=== PATIENT | female | born 1975 | race Caucasian/White ===

== ENCOUNTER 2020-10-30 14:54 | Emergency (ER) | payer MEDICAID, SELFPAY ==
--- NOTE | ~2020-10-30 | CT_ITS ---
EXAMINATION: CT ABDOMEN AND PELVIS WITHOUT CONTRAST CLINICAL INFORMATION: Flank pain. Lumbar back pain with urinary retention. COMPARISON: None TECHNIQUE: Multidetector volumetric imaging was performed from the superior aspect of the liver through the pubic symphysis. Sagittal and coronal reformatted images were obtained on the technologist's workstation. This CT examination was performed using dose optimization techniques as appropriate, variously including the following: *Automated exposure control *Adjustment of mA and/or kV according to patient size (this includes techniques or standardized protocols for targeted exams where dose is matched to indication/reason for exam; i.e. extremities or head) *Use of iterative reconstruction technique DLP: 732 mGy-cm FINDINGS: LUNG BASES: The visualized lung bases are unremarkable. LIVER, GALLBLADDER, AND BILIARY TREE: The liver is normal in size, shape, and attenuation. No focal hepatic lesion or biliary ductal dilatation is present. The gallbladder is unremarkable with no evidence of radiopaque gallstones, gallbladder wall thickening, or obvious pericholecystic inflammatory changes. PANCREAS: Unremarkable. SPLEEN: Unremarkable. ADRENAL GLANDS: Unremarkable. KIDNEYS AND URETERS: The kidneys are normal in size, shape, and attenuation. No hydronephrosis, hydroureter, or calculi seen. No perinephric stranding. BLADDER: Underdistended-appearing, unremarkable. GASTROINTESTINAL TRACT: Stomach is partially distended. No dilated small bowel loops. The large colon is nondistended. No colonic wall thickening or pericolonic inflammatory changes. The appendix is not definitely identified. No inflammatory changes are seen in the right lower quadrant. No free fluid. No free air. ABDOMINAL WALL: No significant hernia is appreciated. LYMPH NODES: No enlarged lymph nodes are seen. VASCULAR: Normal caliber aorta. PELVIC VISCERA: Uterus is retroverted. No adnexal masses appreciated. OSSEOUS STRUCTURES: No acute or suspicious osseous abnormality. CT/CT abdomen pelvis wo con IMPRESSION: 1. No acute infectious/inflammatory process is identified in the abdomen or pelvis. 2. No renal calculi or hydronephrosis is seen.
[2020-10-30 15:54] VITALS: BP 168/92; PULSE 60; RESP 20; TEMP 36.4; O2SAT 96; BMI 34.9
[2020-10-30 16:00] VITALS: BP 142/86; PULSE 96; RESP 16; O2SAT 100
--- NOTE | 2020-10-30 17:16 | ED_ITS ---
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 She states that she took Vicodin and other pain medications earlier today however the medications that have been prescribed to her are ineffective. She does have chronic back pain with bilateral sciatica. She does not report any fevers or chills, chest pain or pressure, palpitations, shortness of breath, abdominal distention, hematuria, melena, hematochezia, nausea, vomiting, diarrhe a, constipation, and edema. She denies any symptoms indicating cauda equina and has not traveled outside of the country. MD elicited complaint: flank pain and other ( Back pain) Onset (ago): day(s) Pain Consistency: constant Location: L flank and R flank Severity: severe Quality: stabbing and aching Migration to: no migration Exacerbating factors: movement Relieving factors: nothing Associated symptoms: other ( dysuria) Treatments prior to arrival: prescription analgesics Related Data Patient : No Previous Rx's Medication Instructions Recorded diazepam [Valium] 5 mg PO TID PRN #7 tab 10/30/20 Allergies Allergy/AdvReac Type Severity Reaction Status Date / Time No Known Allergies Allergy Unverified 01/13/20 17:24 [No Known Allergies*] Review of Systems Review of Systems Constitutional: No Fever, No Chills ENT/Mouth: No sore throat Eyes: No Eye Pain, No Swelling, No Redness Cardiovascular: No Chest Pain, No SOB Respiratory: No Cough, No Sputum, No Wheezing Gastrointestinal: positive Nausea, no Vomiting, No Diarrhea, positive abdominal pain Genitourinary: positive Dysuria, positive urinary frequency, no Hematuria, positive Flank Pain, positive hesitancy Musculoskeletal: No joint pain, No Myalgias Skin: No Skin Lesions, No rash Neuro: No Weakness, No Numbness, No Headache Psych: No Anxiety/Panic, No Depression Heme/Lymph: No Bruising, No Lymphadenopathy Endocrine: No Polyuria, No Polydipsia Yes all other systems are reviewed and are negative Physical Exam Vital Signs: Vital Signs: Last Vital Signs Temp 97.5 F 10/30/20 15:54 Pulse 74 10/30/20 18:00 Resp 16 10/30/20 18:00 BP 132/66 10/30/20 18:00 Pulse Ox 99 10/30/20 18:00 Body Mass Index 34.9 Appearance: Alert. Oriented X3. No acute distress. Eyes: Pupils equal, round and reactive to light. ENT: Pharynx normal. Neck: Normal inspection. Neck supple. CVS: Normal heart rate and rhythm. Pulses normal. Respiratory: No respiratory distress. Breath sounds normal. Abdomen: Soft and tender to right lower left lower quadrants, positive CVA tenderness. Skin: Skin warm and dry. Normal skin color. Normal skin turgor. Extremities: No lower extremity edema. Neuro: No motor deficit. No sensory deficit. Course Course Course Narrative: 45-year-old female presents with 2 days of back pain, bilateral flank pain, urinary hesitancy and frequency, states that she does have bilateral side numbness which is chronic. She has not lost balance, and denies symptoms indicating cauda equina. Will order CT scan of abdomen pelvis to rule out acute abdomen, stones, with a focus on lumbar spine secondary to her past medical history of herniation And disc generation. CT scan was negative. Labs are unremarkable. Urinalysis is unremarkable. Patient is requesting more pain medication however at this time I do not feel that is necessary. She does have prescriptions at home for Vicodin, which I will advise her to continue to use. Patient verbalized understanding of and agrees to plan of care discharge home. management liaison utilized for all correspondence. Google translate utilized for discharge instructions. MDM - Abdominal Pain Differential Diagnosis Differential diagnosis: Likely abdominal pain and calculus of kidney Medical Records Attestation: I reviewed the patient's medical records. Lab Data Attestation: I reviewed the patient's lab results. Result diagrams: 10/30/20 17:21 10/30/20 17:21 Labs: Lab Results 10/30/20 10/30/20 10/30/20 Range/Units 17:20 17:20 17:21 WBC 7.9 (4.8-10.8) X10*3/uL RBC 4.96 (4.20-5.50) X10*6/uL Hgb 14.3 (12.0-16.0) g/dl Hct 42.9 (37-47) % MCV 86.5 (80-98) fL MCH 28.8 (27.0-33.0) pg MCHC 33.3 (31.0-35.0) g/dl RDW 13.0 (11.0-16.0) % Plt Count 283 (160-400) X10*3/uL MPV 9.9 (9.4-12.3) fL Immature Gran % (Auto) 0.8 H (0.0-0.4) % Neut % (Auto) 70.2 (45-73) % Lymph % (Auto) 19.3 L (20-40) % Vermilion % (Auto) 7.1 (2-11) % Eos % (Auto) 2.0 (0-4) % Baso % (Auto) 0.6 (0-2) % Lymph # (Auto) 1.5 (1.2-4.9) X10*3/uL [place] # (Auto) 0.6 (0.1-1.2) X10*3/uL Eos # (Auto) 0.2 (0.0-0.4) X10*3/uL Baso # (Auto) 0.1 (0.0-0.2) X10*3/uL Abs Immat Gran (auto) 0.06 H (0.00-0.03) X10*3/uL Absolute Neuts (auto) 5.5 (2.0-8.3) X10*3/uL Absolute Nucleated RBC 0.000 (0.0-0.012) X10*3/uL Nucleated RBC % (auto) 0.0 (0.0-0.2) /100WBC Sodium (135-145) mmol/L Potassium (3.3-5.1) mmol/L Chloride (96-108) mmol/L Carbon Dioxide (22-29) mmol/L Anion Gap (12-20) BUN (9-16) mg/dL Creatinine (0.5-1.4) mg/dL Estim Creat Clear Calc Estimated GFR Random Glucose (60-115) mg/dL Calcium (8.4-10.2) mg/dL Total Bilirubin (0.0-1.0) mg/dL Direct Bilirubin (0.0-0.5) mg/dL AST (5-31) U/L ALT (0-31) U/L Alkaline Phosphatase (39-117) U/L Total Protein (6.5-8.0) g/dL Albumin (3.5-5.0) g/dL Lipase (8-78) U/L Urine Color YELLOW Urine Appearance CLEAR Urine pH 6.5 (5.0-8.0) Ur Specific Sixes 1.015 (1.005-1.025) Urine Protein NEG (NEG-TRACE) MG/DL Urine Glucose (UA) NEG (NEG) MG/DL Urine Ketones NEG (NEG) MG/DL Urine Blood NEG (NEG) Urine Nitrite NEG (NEG) Ur Leukocyte Esterase NEG (NEG) Urine Test NEGATIVE (NEGATIVE) 10/30/20 Range/Units 17:21 WBC (4.8-10.8) X10*3/uL RBC (4.20-5.50) X10*6/uL Hgb (12.0-16.0) g/dl Hct (37-47) % MCV (80-98) fL MCH (27.0-33.0) pg MCHC (31.0-35.0) g/dl RDW (11.0-16.0) % Plt Count (160-400) X10*3/uL MPV (9.4-12.3) fL Immature Gran % (Auto) (0.0-0.4) % Neut % (Auto) (45-73) % Lymph % (Auto) (20-40) % Vermilion % (Auto) (2-11) % Eos % (Auto) (0-4) % Baso % (Auto) (0-2) % Lymph # (Auto) (1.2-4.9) X10*3/uL Vermilion # (Auto) (0.1-1.2) X10*3/uL Eos # (Auto) (0.0-0.4) X10*3/uL Baso # (Auto) (0.0-0.2) X10*3/uL Abs Immat Gran (auto) (0.00-0.03) X10*3/uL Absolute Neuts (auto) (2.0-8.3) X10*3/uL Absolute Nucleated RBC (0.0-0.012) X10*3/uL Nucleated RBC % (auto) (0.0-0.2) /100WBC Sodium 138 (135-145) mmol/L Potassium 4.1 (3.3-5.1) mmol/L Chloride 105 (96-108) mmol/L Carbon Dioxide 22 (22-29) mmol/L Anion Gap 15 (12-20) BUN 11 (9-16) mg/dL Creatinine 0.62 (0.5-1.4) mg/dL Estim Creat Clear Calc 133.5 Estimated GFR > 60 Random Glucose 103 (60-115) mg/dL Calcium 9.2 (8.4-10.2) mg/dL Total Bilirubin 0.5 (0.0-1.0) mg/dL Direct Bilirubin < 0.2 (0.0-0.5) mg/dL AST 21 (5-31) U/L ALT 24 (0-31) U/L Alkaline Phosphatase 52 (39-117) U/L Total Protein 7.3 (6.5-8.0) g/dL Albumin 4.4 (3.5-5.0) g/dL Lipase 23 (8-78) U/L Urine Color Urine Appearance Urine pH (5.0-8.0) Ur Specific Sixes (1.005-1.025) Urine Protein (NEG-TRACE) MG/DL Urine Glucose (UA) (NEG) MG/DL Urine Ketones (NEG) MG/DL Urine Blood (NEG) Urine Nitrite (NEG) Ur Leukocyte Esterase (NEG) Urine Test (NEGATIVE) Imaging Data CT abdomen pelvis: Attestation: I personally reviewed and interpreted this imaging study as follows: Radiologist's impression: FINDINGS: LUNG BASES: The visualized lung bases are unremarkable. LIVER, GALLBLADDER, AND BILIARY TREE: The liver is normal in size, shape, and attenuation. No focal hepatic lesion or biliary ductal dilatation is present. The gallbladder is unremarkable with no evidence of radiopaque gallstones, gallbladder wall thickening, or obvious pericholecystic inflammatory changes. PANCREAS: Unremarkable. SPLEEN: Unremarkable. ADRENAL GLANDS: Unremarkable. KIDNEYS AND URETERS: The kidneys are normal in size, shape, and attenuation. No hydronephrosis, hydroureter, or calculi seen. No perinephric stranding. BLADDER: Underdistended-appearing, unremarkable. GASTROINTESTINAL TRACT: Stomach is partially distended. No dilated small bowel loops. The large colon is nondistended. No colonic wall thickening or pericolonic inflammatory changes. The appendix is not definitely identified. No inflammatory changes are seen in the right lower quadrant. No free fluid. No free air. ABDOMINAL WALL: No significant hernia is appreciated. LYMPH NODES: No enlarged lymph nodes are seen. VASCULAR: Normal caliber aorta. PELVIC VISCERA: Uterus is retroverted. No adnexal masses appreciated. OSSEOUS STRUCTURES: No acute or suspicious osseous abnormality. CT/CT abdomen pelvis wo con IMPRESSION: 1. No acute infectious/inflammatory process is identified in the abdomen or pelvis. 2. No renal calculi or hydronephrosis is seen. Discharge Plan Discharge Clinical Impression: Chronic lower back pain Qualifiers: Back pain laterality: bilateral Sciatica presence: with sciatica Sciatica late rality: bilateral sciatica Qualified Code(s): M54.42 - Lumbago with sciatica, left side Sciatica Qualifiers: Laterality: bilateral Qualified Code(s): M54.31 - Sciatica, right side Patient Disposition: Home, Self-Care Instructions: Sciatica (ED), Back Pain (ED) Additional Instructions: se le evalu? por dolor lumbar con ci?abdirahman que se irradia a los flancos bilateral es. La tomograf?a computarizada del abdomen y la pelvis es negativa para los hallazgos abdominales agudos. Los s?ntomas son consistentes con burris dolor lumbar cr?yuniel, hernia discal y degeneraci?n. Vanesa un seguimiento con el [place], Dr. Cummings. Le he recetado Valium, que le ayudar? con los espasmos musculares. marlene medicamento es un benzo diazepam y tiene un alto riesgo de adicci?n y abuso. No conduzca ni maneje maquinaria mientras est? tomando marlene medicamento. No abhi alcohol mientras edwige marlene medicamento, ya que puede sufrir efectos secundarios graves, kimberly s?ncope, desmayo y n?useas y v?mitos intensos. Mp por elegir marlene departamento de emergencias para burris evaluaci?n. Vanesa un seguimiento con burris m?dico de atenci?n primaria seg?n sea necesario. Regrese al departamento de emergencias por cualquier s?ntoma nuevo, preocupante o que empeore. you were evaluated for lower back pain with sciatica that radiates to the bilateral flanks. CT scan of the abdomen and pelvis are negative for acute abdominal findings. The symptoms are consistent with your chronic lower back pain, disc herniation and degeneration. Please follow-up with Pain Management, Dr Cummings. I have given you a prescription for Valium, this will help with muscle spasms. this medication is a benzo diazepam and has high risk for addiction and abuse. Do not drive or operate machinery while taking this medication. Do not drink alcohol while taking this medication as you may suffer serious side effects including syncope, blacking out, and severe nausea and vomiting. Thank you for choosing this emergency department for evaluation. Please follow-up with primary care physician as needed. Return to the emergency department for any new, concerning, or worsening symptoms. Prescriptions: New diazepam [Valium] 5 mg tablet 5 mg PO TID PRN (Reason: muscle spasm) Qty: 7 RF: 0 Referrals: Houston Cummings MD [Physician] - 2 days ( lower back pain and sciatica) Interventions: ED Discharge Assessment Last Done: 10/30/20 19:33 Discharge Date/Time: 10/30/20 19:34 [facility] Past Medical History Attestation statement: The following information was validated with the patient. Source: old records reviewed Social History Social History Advance Directives: No Advance Directives Information Provided: Yes Patient : No
[2020-10-30] MEDS: Morphine Sulfate 4 MG/ML CARTRIDGE IVPUSH (17:23)
[2020-10-30] MEDS: ondansetron HCL 4 MG/2 ML VIAL IVPUSH (17:23)
[2020-10-30] MEDS: Ketorolac Tromethamine 30 MG/ML VIAL IVPUSH (17:23)
[2020-10-30 17:27] LABS: MANUAL DIFF FLAG NO
[2020-10-30 17:31] LABS: Appearance Urine CLEAR; Color Urine YELLOW; Glucose Urine UA NEG (NEG); Leukocyte Esterase Urine NEG (NEG); Nitrite Urine NEG (NEG); PH 6.5 (5.0-8.0); Specific Gravity - Urine 1.015 (1.005-1.025); Urine Blood NEG (NEG); Urine Ketones NEG (NEG); Urine Protein NEG (NEG-TRACE)
[2020-10-30 17:34] LABS: UPreg QC Valid YES; Urine Pregnancy NEGATIVE (NEGATIVE)
[2020-10-30 17:46] LABS: Basophils Absolute Auto 0.1 X10*3/uL (0.0-0.2); Basophils Percent Auto 0.6 % (0-2); Eosinophils Absolute Auto 0.2 X10*3/uL (0.0-0.4); Hematocrit 42.9 % (37-47); Hemoglobin 14.3 g/dl (12.0-16.0); Imm Gran Abs Auto 0.06 X10*3/uL (0.00-0.03); Imm Gran Pct Auto 0.8 % (0.0-0.4); Lymphocytes Absolute Auto 1.5 X10*3/uL (1.2-4.9); Lymphocytes Percent Auto 19.3 % (20-40); Mean Corpuscular HGB Conc 33.3 g/dl (31.0-35.0); Mean Corpuscular Hemoglobin 28.8 pg (27.0-33.0); Mean Corpuscular Volume 86.5 fL (80-98); Mean Platelet Volume 9.9 fL (9.4-12.3); Monocytes Absolute Auto 0.6 X10*3/uL (0.1-1.2); Monocytes Percent Auto 7.1 % (2-11); Neutrophils Absolute Auto 5.5 X10*3/uL (2.0-8.3); Neutrophils Percent Auto 70.2 % (45-73); Platelet Count 283 X10*3/uL (160-400); Red Blood Count 4.96 X10*6/uL (4.20-5.50); White Blood Count 7.9 X10*3/uL (4.8-10.8)
[2020-10-30 17:52] LABS: Alanine Aminotransferase 24 U/L (0-31); Albumin Level 4.4 g/dL (3.5-5.0); Alkaline Phosphatase 52 U/L (39-117); Anion Gap 15 (12-20); Aspartate Amino Transferase 21 U/L (5-31); Bilirubin Direct < 0.2 mg/dL (0.0-0.5); Bilirubin Total 0.5 mg/dL (0.0-1.0); Blood Urea Nitrogen 11 mg/dL (9-16); Calcium 9.2 mg/dL (8.4-10.2); Carbon Dioxide 22 mmol/L (22-29); Chloride 105 mmol/L (96-108); Creatinine Clr Calc Pharmacy 133.5; Estimated Glomerular Filt Rate > 60; Glucose Random 103 mg/dL (60-115); Lipase 23 U/L (8-78); Potassium 4.1 mmol/L (3.3-5.1); Sodium 138 mmol/L (135-145); Total Protein 7.3 g/dL (6.5-8.0)
[2020-10-30 18:00] VITALS: BP 132/66; PULSE 74; RESP 16; O2SAT 99
[2020-10-30] MEDS: diazePAM 5 MG TABLET PO (19:23)
== END 2020-10-30 19:34 | disposition home or self-care (01) ==
PROVIDERS: Nurse Practitioner Family; Emergency Provider Emergency Medicine; PCP Internal Medicine
DX: M54.42 Lumbago with sciatica, left side (principal); M54.41 Lumbago with sciatica, right side; R39.11 Hesitancy of micturition; R35.0 Frequency of micturition
CPT/HCPCS: 36415; 51798; 74176; 80048; 80076; 81003; 81025; 83690; 85025; 96374; 96375; 99284; J1885; J2270; J2405

== ENCOUNTER 2021-08-03 17:45 | Emergency (ER) | payer MEDICAID, SELFPAY ==
--- NOTE | ~2021-08-03 | XR_ITS ---
EXAMINATION: XR LUMBOSACRAL SPINE CLINICAL INFORMATION: Low back pain COMPARISON: June 06, 2013 TECHNIQUE: Three views of the lumbosacral spine. FINDINGS: There are 5 non rib bearing lumbar vertebra. The bony texture and alignment is satisfactory. No acute fracture, spondylolisthesis, or spondylolysis is appreciated. There is narrowing of the L5-S1 disc space. Evaluation of the right L5-S1 facet joint is limited due to overlying structures but facet arthropathy in this location may be present with region of increased density overlying. XR/XR lumbar spine 2-3V IMPRESSION: Degenerative disc disease L5-S1. No acute fracture, spondylolisthesis, or spondylolysis.
[2021-08-03 17:58] VITALS: BP 158/85; PULSE 94; RESP 20; TEMP 37.2; O2SAT 98
--- NOTE | 2021-08-03 18:04 | ED_ITS ---
HPI - Back Pain/Injury General Chief Complaint: Back Pain/Injury Stated Complaint: back pain x3 days Time Seen by Provider: 08/03/21 18:03 Source: patient Mode of arrival: ambulatory Limitations: no limitations History of Present Illness HPI Narrative: This is a 46-year-old female who denies past medical history presenting to the emergency department with lower back pain since this morning. Patient tells me she woke up and started experiencing severe lower back pain, she tells me it is so painful she is having trouble walking. She reports 10/10 constant pain to the lower back she tells me she does not know how to describe the pain but it is severe. Does not radiate. She reports that she was once told that she had multiple herniated discs and pinched nerves in her back. She tells me that this feels like previous back pain. She denies fevers, chills, IV drug use, urinary and bowel incontinence, weakness, numbness, tingling, saddle paresthesias, abdominal pain, chest pain, shortness of breath. She denies history of kidney stones and denies recent trauma to the area. Throughout my history taking patient tells me all she wants is pain medicine, she tells me she is in a lot of pain. She is crying. MD elicited complaint: back pain Pertinent past history: prior back pain and arthritis Onset (ago): day(s) (1) Timing: constant Severity: severe Pain scale (0-10): 10 Quality: sharp and aching Location: lumbar spine Radiation: none Exacerbating factors: none Relieving factors: none Associated symptoms: denies other symptoms Work related injury: No Related Data Previous Rx's Medication Instructions Recorded diazepam 5 mg tablet (Valium) 5 mg PO TID PRN #7 tab 10/30/20 cyclobenzaprine 10 mg tablet 10 mg PO BEDTIME PRN #7 tab 08/03/21 lidocaine 5 % topical patch 1 patch TOPICAL DAILY PRN #15 ea 08/03/21 naproxen 500 mg tablet 500 mg PO BID #14 tab 08/03/21 Allergies Allergy/AdvReac Type Severity Reaction Status Date / Time No Known Allergies Allergy Unverified 01/13/20 17:24 [No Known Allergies*] Review of Systems Review of Systems: Constitutional : No Weight loss, No Fever, No Chills, No Fatigue, No Malaise ENT/Mouth : No sore throat, No Rhinorrhea Eyes: No Eye Pain, No Swelling, No Redness Cardiovascular : No Chest Pain, No SOB, No Dyspnea on Exertion, No Orthopnea, No Edema, No Palpitations Respiratory : No Cough, No Sputum, No Wheezing Gastrointestinal : No Nausea, No Vomiting, No Diarrhea, No Constipation, No abdominal Pain, No Hematochezia, No Melena Genitourinary : No Dysuria, No Urinary Frequency, No Hematuria, Musculoskeletal : + joint pain, No Myalgias, No Joint Swelling Skin : No Skin Lesions, No rash Neuro : No Weakness, No Numbness, No Dizziness, No Headache Psych : No Anxiety/Panic, No Depression All other systems reviewed and are negative Yes all other systems are reviewed and are negative [facility] Past Medical History Attestation statement: The following information was validated with the patient. Source: old records reviewed and nursing notes reviewed Social History Social History Advance Directives: No Advance Directives Information Provided: No Patient : No Physical Exam Vital Signs: Vital Signs: Last Vital Signs Temp 98.6 F 08/03/21 18:18 Pulse 92 08/03/21 18:18 Resp 20 08/03/21 18:18 BP 165/111 H 08/03/21 18:18 Pulse Ox 99 08/03/21 18:18 BMI result Body Mass Index 35.2 Vital signs stable. Appearance: Alert.? Oriented X3.? No acute distress.? Head: Normocephalic, atraumatic, no step-offs or deformities Eyes: Pupils equal, round and reactive to light.? ENT: Pharynx normal.? Neck: Normal inspection.? Neck supple.? CVS: Normal heart rate and rhythm.? Pulses normal.? Respiratory: No respiratory distress.? Breath sounds normal.? Abdomen: Soft and nontender.? Skin: Skin warm and dry.? Normal skin color.? Normal skin turgor.? Extremities: No lower extremity edema.? No calf ttp. 5/5 strength to bilateral upper and lower extremities 2+ patellar reflexes equal bilateral. + straight leg raise bilaterally. Back: No midline tenderness, no C-spine tenderness, full range of motion, no CVA tenderness bilaterally Neuro: Oriented X 3.? No motor deficit.? No sensory deficit. CN 2-12 intact . No saddle paresthesias. Course Reevaluation(s) Reevaluation #1: Patient ambulating with a steady gait neuro exam nonfocal. No saddle paresthesias no urinary or bowel incontinence. Patient ambulating to the bathroom. X-ray of the lumbar spine with degenerative disc disease L5-S1. No acute fractures, or spondylolysis. At this time patient will be discharged home with muscle relaxers, naproxen and lidocaine patches. Advised her to follow-up with her PCP and return with new or worsening symptoms. Time: 20:14 MDM - Back Pain/Injury MDM Narrative Medical decision making narrative: 1805 46 yo f presents w/ atraumatic back pain since this morning. Tells me this feels like her previous episodes of back pain history of a herniated discs and impinge nerves in her back. Patient tells me that her PCP is aware of this and they are setting her up with a specialist. History and physical examination significant for pain with palpation to paraspinous muscles in the lumbar area, no midline tenderness, positive straight leg bilaterally. Patient reports range of motion is painful however she has full range of motion. Neuro exam nonfocal. Sensory and motor intact to bilateral upper and lower extremities 2+ patellar reflexes equal bilateral. No saddle paresthesias. History and physical examination not consistent with caud equina or epidural abscess. Plan at this time is pain medicine. Medical Records Attestation: I reviewed the patient's medical records. Lab Data Attestation: I reviewed the patient's lab results. Critical Care Time Critical Care Time Critical Care Time: No Discharge Plan Discharge Clinical Impression: Strain of lumbar region Patient Disposition: Home, Self-Care Instructions: Acute Low Back Pain (ED) Additional Instructions: Take your medications as prescribed. Follow-up with your primary care provider this week. If your pain persists you may require an MRI for better evaluation of this pain. Return to the emergency department with new or worsening symptoms. Such as fevers, chills, chest pain, shortness of breath, nausea, vomiting, dizziness, headache, vision changes, lethargy, inability to control bladder/bowel will, weakness, numbness or tingling. In case of emergency call 911 Prescriptions: New cyclobenzaprine 10 mg tablet 10 mg PO BEDTIME PRN (Reason: muscle spasm) Qty: 7 0RF lidocaine 5 % adhesive patch,medicated 1 patch topical DAILY PRN (Reason: pain) Qty: 15 0RF Rx Instructions: leave on most painful area for up to 12 hrs naproxen 500 mg tablet 500 mg PO BID Qty: 14 0RF No Action diazepam [Valium] 5 mg tablet 5 mg PO TID PRN (Reason: muscle spasm) Qty: 7 0RF Referrals: Chayito Causey MD [Primary Care Provider] - Stand Alone Forms: Work/School Release
[2021-08-03 18:18] VITALS: BP 157/89; BP 165/111; PULSE 108; PULSE 92; RESP 20; TEMP 37; O2SAT 99; BMI 35.2
[2021-08-03] MEDS: Ketorolac Tromethamine 30 MG/ML VIAL IM (18:36)
--- NOTE | 2021-08-03 19:17 | PC.NURSE ---
PT AMB TO BATHROOM INDEPENDENTLY WITH STEADY GAIT.
[2021-08-03 20:36] VITALS: BP 138/86; PULSE 86; RESP 17; O2SAT 98
== END 2021-08-03 20:38 | disposition home or self-care (01) ==
PROVIDERS: Emergency Provider Emergency Medicine; PCP Internal Medicine
DX: M54.50 Low back pain, unspecified (principal); Z79.899 Other long term (current) drug therapy
CPT/HCPCS: 72100; 96372; 99284; J1885

== ENCOUNTER 2023-06-04 10:25 | Outpatient (REF) | payer MEDICAID, SELFPAY ==
--- NOTE | ~2023-06-04 | XR_ITS ---
EXAMINATION: XR LUMBOSACRAL SPINE CLINICAL INFORMATION: Worsening back pain COMPARISON: 08/03/2021 TECHNIQUE: Three views of the lumbosacral spine. FINDINGS: There is degenerative change lumbosacral junction but no fracture or destructive process or alignment abnormality. XR/XR lumbar spine 2-3V IMPRESSION: No acute findings.
[2023-06-04 11:45] LABS: MANUAL DIFF FLAG NO
[2023-06-04 11:52] LABS: Basophils Percent Auto 0.5 % (0-2); Eosinophils Absolute Auto 0.4 X10*3/uL (0.0-0.4); Eosinophils Percent Auto 4.9 % (0-4); Hematocrit 42.4 % (37.0-47.0); Hemoglobin 14.1 g/dl (12.0-16.0); Imm Gran Abs Auto 0.02 X10*3/uL (0.00-0.03); Imm Gran Pct Auto 0.3 % (0.0-0.4); Lymphocytes Absolute Auto 1.7 X10*3/uL (1.2-4.9); Lymphocytes Percent Auto 22.4 % (20-40); Mean Corpuscular HGB Conc 33.3 g/dl (31.0-35.0); Mean Corpuscular Hemoglobin 27.3 pg (27.0-33.0); Mean Corpuscular Volume 82.2 fL (80.0-98.0); Mean Platelet Volume 10.1 fL (9.4-12.3); Monocytes Absolute Auto 0.8 X10*3/uL (0.1-1.2); Monocytes Percent Auto 10.9 % (2-11); Neutrophils Absolute Auto 4.6 x10*3/uL (2.0-8.3); Platelet Count 273 X10*3/uL (160-400); Red Blood Count 5.16 X10*6/uL (4.20-5.50); Red Cell Distribution Width 12.8 % (11.0-16.0); White Blood Count 7.6 X10*3/uL (4.8-10.8)
[2023-06-04 12:11] LABS: Estimated Average Glucose 108 mg/dL; Hemoglobin A1c % 5.4 % (<6.0)
[2023-06-04 12:56] LABS: Alanine Aminotransferase 17 U/L (0-31); Albumin Level 4.1 g/dL (3.5-5.0); Alkaline Phosphatase 57 U/L (39-117); Anion Gap 12 (12-20); Aspartate Amino Transferase 20 U/L (5-31); Bilirubin Direct 0.2 mg/dL (0.0-0.5); Bilirubin Total 0.4 mg/dL (0.0-1.0); Blood Urea Nitrogen 12 mg/dL (9-16); Calcium 9.2 mg/dL (8.4-10.2); Carbon Dioxide 22 mmol/L (22-29); Chloride 107 mmol/L (96-108); Cholesterol 196 mg/dL (<200); Estimated Glomerular Filt Rate > 60; Glucose Random 101 mg/dL (60-115); HDL Cholesterol 39 mg/dL (>40); LDL Cholesterol Calculated 143 mg/dL (<100); Potassium 3.9 mmol/L (3.3-5.1); Sodium 137 mmol/L (135-145); Total Protein 7.3 g/dL (6.5-8.0); Triglycerides 74 mg/dL (<150)
[2023-06-05 08:03] LABS: HIV AB/AG Nonreactive (Nonreactive); HIV Num 1 0.07 S/CO (0.00-0.99); ~HepC Num1 0.15 S/CO (0.00-0.79); ~Hepatitis C Antibody Nonreactive (Nonreactive)
== END 2023-06-04 10:26 | disposition home or self-care (01) ==
LOC: HO.HHCL 10:25
PROVIDERS: Visit Provider Internal Medicine
DX: M47.817 Spondylosis without myelopathy or radiculopathy, lumbosacral region (principal); Z00.00 Encounter for general adult medical examination without abnormal findings; Z11.4 Encounter for screening for human immunodeficiency virus [HIV]
CPT/HCPCS: 36415; 72100; 80048; 80061; 80076; 83036; 85025; 86803; 87389

== ENCOUNTER 2023-06-13 12:22 | Outpatient (REF) | payer MEDICAID, SELFPAY ==
--- NOTE | ~2023-06-13 | MM_ITS ---
EXAMINATION: MM SCREENING DIGITAL BREAST TOMOSYNTHESIS, BILATERAL CLINICAL INFORMATION: Screening. Asymptomatic. COMPARISON: Mammography: There are no prior mammograms for comparison. This is a baseline study. TECHNIQUE: Digital breast tomosynthesis is performed in both the craniocaudal and mediolateral oblique views along with computer-aided detection (CAD). Synthesized 2D images are generated from the tomosynthesis. FINDINGS: The breasts are almost entirely fatty (ACR BI-RADS breast composition Category a). There are no significant masses, abnormal calcifications, or other abnormalities. MM/MM tomosynthesis screening BI IMPRESSION: No mammographic evidence of malignancy. ASSESSMENT: BI-RADS BI-RADS 1 - Negative RECOMMENDATION: Routine annual mammography screening. 1 year F/U This examination should not preclude the clinical evaluation of a suspicious palpable abnormality. This patient's information was entered into a reminder system with a target due date for their next mammogram.
== END 2023-06-13 12:23 | disposition home or self-care (01) ==
LOC: HO.MAMMO 12:22
PROVIDERS: PCP Internal Medicine; Visit Provider Internal Medicine
DX: Z12.31 Encounter for screening mammogram for malignant neoplasm of breast (principal)
CPT/HCPCS: 77063; 77067

== ENCOUNTER → 2023-06-13 13:00 | Outpatient (BNV) | payer MEDICAID, SELFPAY | PROVIDERS: PCP Internal Medicine; Visit Provider Radiology Diagnostic Radiology | DX: Z12.31 Encounter for screening mammogram for malignant neoplasm of breast (principal) | CPT/HCPCS: 77063; 77067 ==

== ENCOUNTER 2023-11-04 16:04 | Outpatient (REF) | payer MEDICAID, SELFPAY | END 2023-11-04 16:05 | disposition home or self-care (01) | LOC: HO.HHCLNP 16:04 | PROVIDERS: Visit Provider Registered Nurse | DX: M47.817 Spondylosis without myelopathy or radiculopathy, lumbosacral region (principal) | CPT/HCPCS: 36415; 80353 ==

== ENCOUNTER 2023-12-01 13:07 | Outpatient (REF) | payer MEDICAID, SELFPAY ==
[2023-12-08 13:23] LABS: Fentanyl, Ur NEGATIVE; Norfentanyl, Ur NEGATIVE
== END 2023-12-01 13:08 | disposition home or self-care (01) ==
LOC: HO.HHCLNP 13:07
PROVIDERS: Visit Provider Internal Medicine
DX: M47.817 Spondylosis without myelopathy or radiculopathy, lumbosacral region (principal)
CPT/HCPCS: 80354

== ENCOUNTER 2024-08-03 10:39 | Outpatient (REF) | payer MEDICAID, SELFPAY ==
[2024-08-03 11:07] LABS: MANUAL DIFF FLAG NO
[2024-08-03 11:21] LABS: Basophils Absolute Auto 0.1 X10*3/uL (0.0-0.2); Basophils Percent Auto 0.8 % (0-2); Eosinophils Absolute Auto 0.4 X10*3/uL (0.0-0.4); Eosinophils Percent Auto 6.1 % (0-4); Hemoglobin 13.5 g/dl (12.0-16.0); Imm Gran Abs Auto 0.02 X10*3/uL (0.00-0.03); Imm Gran Pct Auto 0.3 % (0.0-0.4); Lymphocytes Absolute Auto 2.1 X10*3/uL (1.2-4.9); Lymphocytes Percent Auto 29.7 % (20-40); Mean Corpuscular HGB Conc 33.8 g/dl (31.0-35.0); Mean Corpuscular Hemoglobin 28.2 pg (27.0-33.0); Mean Corpuscular Volume 83.5 fL (80.0-98.0); Mean Platelet Volume 9.6 fL (9.4-12.3); Monocytes Absolute Auto 0.6 X10*3/uL (0.1-1.2); Monocytes Percent Auto 8.6 % (2-11); Neutrophils Absolute Auto 3.8 x10*3/uL (2.0-8.3); Neutrophils Percent Auto 54.5 % (45-73); Platelet Count 244 X10*3/uL (160-400); Red Blood Count 4.79 X10*6/uL (4.20-5.50); Red Cell Distribution Width 13.6 % (11.0-16.0); White Blood Count 7.1 X10*3/uL (4.8-10.8)
[2024-08-03 11:25] LABS: Estimated Average Glucose 114 mg/dL; Hemoglobin A1C 131.9987 umol/L; Hemoglobin A1c % 5.6 % (<6.0); Total Hemoglobin (HGBA1C) 3534.1338 umol/L
[2024-08-03 12:44] LABS: Alanine Aminotransferase 18 U/L (0-31); Albumin Level 3.9 g/dL (3.5-5.0); Alkaline Phosphatase 55 U/L (39-117); Anion Gap 9 (12-20); Aspartate Amino Transferase 19 U/L (5-31); Bilirubin Total 0.2 mg/dL (0.0-1.0); Blood Urea Nitrogen 12 mg/dL (9-16); Carbon Dioxide 22 mmol/L (22-29); Chloride 110 mmol/L (96-108); Cholesterol 219 mg/dL (<200); Estimated Glomerular Filt Rate > 60; Glucose Random 121 mg/dL (60-115); HDL Cholesterol 50 mg/dL (>40); LDL Cholesterol Calculated 133 mg/dL (<100); Potassium 3.5 mmol/L (3.3-5.1); Sodium 137 mmol/L (135-145); Total Protein 6.7 g/dL (6.5-8.0); Triglycerides 180 mg/dL (<150)
--- OUTSIDE RECORDS SUMMARY | 2024-08-03 12:47 | XMS_ITS | Encounter Summary ---
Author Organization [employer] Address [address] 7t [place] [address] Care Team Providers Care Tapering Machine Operator Name Role Phone Chayito Causey MD Primary Care Provide r Reason for Visit * Reason Onset Date Comments Med Refill 08/03/2024 Encounter Details Date Type Department Care Team ([facility] st Contact Info) Description 08/03/[address] [facility] MEDICINE [address] [place] [address] Chayito Causey MD [address] [place] [address] Lumbosacral spondylosis without myelopathy Social History Tobacco Use Types Packs/Day Years Used Date Smoking Tobacco: Never Passive Smoke Exposure: Never Smokeless Tobacco: Never Alcohol Answer Date Recorded How often do you have a drink containing alcohol ? 3 07/30/2024 How many drinks containing a lcohol do you have on a typical day when you are drinking? 2 07/30/2024 How often do you have six or more drinks on one occasion? 2 07/30/2024 Depression Answer Date Recorded Patient Health Questionnaire-9 Score 12 07/30/2024 Patient Health Questionnaire-9 Score 12 07/30/2024 Last PHQ-9: Questionnaire Data Not on file 0 07/30/2024 Housing Stability Answer Date Recorded What is your housing situation today? I have gloria trent 07/22/[address] you li ve. Do you have problems with any of the following? None of the above 07/22/2024 Food Insecurity Answer Date Recorded Within the past 12 months, y ou worried that your food would run out before you got money to buy more: Often true 07/22/2024 Within the past 12 months,th e food you bought just didn't last and you didn't have enough money to get more: Often true Transportation Answer Date Recorded In the past 12 months, has l ack of transportation kept you from medical appts, meetings, work or from getting things needed for daily living? No 07/22/2024 Utilities Answer Date Recorded In the past 12 months, has t he electric, gas, oil or water company threatened to shut off services in your home? I am not sure 07/22/2024 Depression Answer Date Recorded Patient Health Questionnaire-2 Score 3 07/30/2024 Internet Access Answer Date Recorded Internet Access Q1 Yes 07/22/2024 Internet Access Q2 I do not want or need it 06/27 Comments Unknown Sex and Gender Information Value Date Recorded Sex Assigned at Female 02/25/2022 10:18 AM EDT Legal Sex Female 10:18 AM EDT Gender Identity Female 02/25/2022 10:18 AM EDT Sexual Orientation Straight 02/25/2022 10 :18 AM EDT documented as of this encounter Miscellaneous Notes * Telephone Encounter - Angle Gregory RN - 08/03/2024 9:47 AM EDT Ronaldt reviewed, pt. Last picked up 28 day supply 07/07/24. Rx due tomorrow 08/04/24, pended. PCP OFF * Telephone Encounter - Sruthi Nguyen - 08/03/2024 9:34 AM EDT TC from pt requesting medication refill. Medications needing refill : oxyCODONE-acetaminophen (Percocet) 10-325 MG tablet To be sent to: [facility] documented in this encounter Plan of Treatment Upcoming Encounters Date Type Department Care Team (Late st Contact Info) Description 09/07/2024 11:00 AM EDT Office Visit [address] [phone] documented as of this encounter Visit Diagnoses Diagnosis Lumbosacral spondylosis without myelopathy documented in this encounter Additional Health Concerns Assessment Noted Time PHQ-9 Depression Total Score: 12 025 1:11 PM EDT documented as of this encounter Care Teams Tapering Machine Operator Relationship Specialty Start Date End Date Chayito Causey MD [address] [place] [address] PCP - General Family Medicine 04/01/19 documented as of this encounter
--- OUTSIDE RECORDS SUMMARY | 2024-08-03 12:47 | XMS_ITS | Encounter Summary ---
Author Organization [employer] [facility] Address [address] [place] [address] 7 [place] [address] Care Team Providers Care Hse Coordinator Name Role Phone Chayito Causey MD Primary Care Provide r Reason for Visit * Reason Comments Med Refill Encounter Details Date Type Department Care Team (Late st Contact Info) Description 04/20/2024 Refill [facility] MEDICINE [address] [place] [phone] Chayito Causey MD [address] [place] [address] [phone] Lumbosacral spondylosis without myelopathy Social History Tobacco Use Types Packs/Day Years Used Date Smoking Tobacco: Never Passive Smoke Exposure: Never Smokeless Tobacco: Never Depression Answer Date Recorded Patient Health Questionnaire-9 Score 20 07/03/2023 Patient Health Questionnaire-9 Score 20 07/03/2023 Last PHQ-9: Questionnaire Data Not on file 0 07/03/2023 Depression Answer Date Recorded Patient Health Questionnaire-2 Score 5 07/03/2023 Comments Unknown Sex and Gender Information Value Date Recorded Sex Assigned at Female 02/25/2022 10:18 AM EDT Legal Sex Female 10:18 AM EDT Gender Identity Female 02/25/2022 10:18 AM EDT Sexual Orientation Straight 02/25/2022 10 :18 AM EDT documented as of this encounter Plan of Treatment Upcoming Encounters Date Type Department Care Team (Late st Contact Info) Description 09/07/2024 11:00 AM EDT Office Visit [facility] MEDICINE [address] [place] [phone] documented as of this encounter Visit Diagnoses Diagnosis Lumbosacral spondylosis without myelopathy documented in this encounter Additional Health Concerns Assessment Noted Time PHQ-9 Depression Total Score: 20 024 8:04 AM EST documented as of this encounter Care Teams Hse Coordinator Relationship Specialty Start Date End Date Chayito Causey MD [address] [place] [address] PCP - General Family Medicine 04/01/19 documented as of this encounter
--- OUTSIDE RECORDS SUMMARY | 2024-08-03 12:47 | XMS_ITS | Encounter Summary ---
Author Organization [employer] [facility] Address [address] [place] [address] 7t [place] [address] Care Team Providers Care Designer/Writer Name Role Phone Chayito Causey MD Primary Care Provide r Reason for Visit * Reason Comments Med Refill Encounter Details Date Type Department Care Team (Late Contact Info) Description 10/02/[address] [facility] & PEDS [address] [place] [address] Chayito Causey MD [address] [place] [phone] Other chronic pain Social History Tobacco Use Types Packs/Day Years Used Date Smoking Tobacco: Never Assessed Comments Unknown Sex and Gender Information Value [...] Description 09/07/2024 11:00 AM EDT Office Visit [facility] MEDICINE [address] [place] [address] [phone] documented as of this encounter Visit Diagnoses Diagnosis Other chronic pain documented in this encounter Care Teams Designer/Writer Relationship Specialty Start Date End Date Chayito Causey MD [address] [place] [address] [phone] PCP - General Family Medicine 04/01/19 documented as of this encounter
--- OUTSIDE RECORDS SUMMARY | 2024-08-03 12:47 | XMS_ITS | Encounter Summary ---
Author Organization [employer] [facility] Address [address] [place] [address] [address] [place] [address] Care Team Providers Care Quality Control Tester Name Role Phone Chayito Causey MD Primary Care Provide r Reason for Referral * Consultation (Routine) - Pending Review Specialty Diagnoses / Procedures Referred By Contac t Referred To Contact Pain Medicine Diagnoses Lumbosacral spondylosis without myelopathy Chayito Causey MD [address] [place] [phone] Phone: tel: fax: Referral ID Status Reason Start Date Expiration Date Visits Requested Visits Authorized [id number] Pending Review Specialty Services Required 07/30/2024 07/30/2025 1 1 * Consultation (Routine) - Pending Review Specialty Diagnoses / Procedures Referred By Contac t Referred To Contact Gastroenterology Diagnoses Colon cancer screening Chayito Causey MD [address] [place] [phone] Phone: tel: fax: Referral ID Status Reason Start Date Expiration Date Visits Requested Visits Authorized [id number] Pending Review Specialty Services Required 07/30/2024 07/30/2025 1 1 * Consultation (Routine) - Authorized Specialty Diagnoses / Procedures Referred By Contac t Referred To Contact Psychiatry Diagnoses Mixed anxiety and depressive disorder Chayito Causey MD [address] [place] [phone] Phone: tel: fax: Referral ID Status Reason Start Date Expiration Date Visits Requested Visits Authorized [id number] Authorized Specialty Services Required 07/30/2024 07/30/2025 1 1 * Consultation (Routine) - Authorized Specialty Diagnoses / Procedures Referred By Contac t Referred To Contact Optometry Diagnoses Diminished vision Chayito Causey MD [address] [place], [place] Phone: tel: fax: [facility] [address] [place] [address] Phone: tel: fax: Referral ID Status Reason Start Date Expiration Date Visits Requested Visits Authorized [id number] Authorized Consult and Treat 07/30/2024 07/30/2025 1 1 * Consultation (Routine) - Authorized Specialty Diagnoses / Procedures Referred By Contac t Referred To Contact Cardiology Diagnoses Atypical chest pain Chayito Causey MD [address] [place] [address] Phone: tel: fax: [facility] Referral ID Status Reason Start Date Expiration Date Visits Requested Visits Authorized [id number] Authorized Specialty Services Required 08/02/2024 08/02/2025 6 6 * Consultation (Routine) - Authorized Specialty Diagnoses / Procedures Referred By Contac t Referred To Contact Obstetrics and Gynecology Diagnoses Cervical cancer screening Chayito Causey MD [address] [place] [address] Phone: tel: fax: [facility] [address] 5[address] (Main Hospital Entrance) [place], [place] Phone: tel: fax: Referral ID Status Reason Start Date Expiration Date Visits Requested Visits Authorized [id number] Authorized Specialty Services Required 08/02/2024 08/02/2025 9 9 Reason for Visit * Reason Comments Follow-up Pt on Percocet, last seen by PCP June 2023 (PVP screening completed current concerns back and chest pain seeking a referral to OBGYN and a psychologist for depression and memory loss)// Pt needs BOTTLE BOOTH ATTENDANT referral and needs to be seen by an eye doctor for blurry vision Encounter Details Date Type Department Care Team (Late st Contact Info) Description 07/30/2024 1:30 PM EDT Office Visit [facility] MEDICINE [address] [place] [address] Chayito Causey MD [address] [place] [address] Cervical cancer screening (Primary Dx); Atypical chest pain; Diminished vision; Mixed anxiety and depressive disorder; Mild intermittent asthma, unspecified whether complicated; Colon cancer screening; Lumbosacral spondylosis without myelopathy; Forgetfulness Social History Tobacco Use Types Packs/Day Years [...] the past 12 months, has t he [employer], gas, oil or water [employer] threatened to shut off services in your [...] AM EDT documented as of this encounter Last Filed Vital Signs Vital Sign Reading Time Taken Comments Blood Pressure 134/85 07/30/2024 1:14 PM EDT Pulse 102 07/30/2024 1:14 PM EDT Temperature - - Respiratory Rate 20 07/30/2024 1:14 PM EDT Oxygen Saturation 99% 07/30/2024 1:14 PM EDT Inhaled Oxygen Concentration - - Weight 92.9 kg (204 lb 12.8 oz) 07/30/2024 1:14 PM EDT Height 165.1 cm (5' 5 ) 07/30/2024 1:14 PM EDT Body Mass Index 34.08 07/30/2024 1:14 PM EDT documented in this encounter Progress Notes * Chayito Crawford MD - 07/30/2024 1:30 PM EDT SUBJECTIVE: Shanae Cedillo is a 49 y.o. year old female who presents for Chronic Disease Management . Acute Concerns: Patient reports she has been feeling more anxious and depressed lately, she reports that they have of her mother affect her a lot and then after her brother she was feeling even worse it she is currently taking duloxetine 60 mg twice a day and another medication for anxiety she is not sure if it is BuSpar or hydroxyzine Patient tells me she has constant lower back pain medication does help but she still has the pain all the time, she would like to be referred back to pain management, she tells me she recently was [place] trip with her sister and medication was confused on her bags,, I let her know that she will have to wait for the next refill and be more careful with her medication, I also talked to her about maintaining a good record regarding her urine toxicology and pill count and that is this is the last time she can have an inconsistency Patient today also reports she has been having chest pain that comes and goes, she denies any triggers, she currently denies any chest pain Patient also complaining today of increased forgetfulness Social History Social History Narrative Not on file Patient Active Problem List Diagnosis Allergic rhinitis Carpal tunnel syndrome Lumbosacral spondylosis without myelopathy Severe episode of recurrent major depressive disorder, without psychotic features ([facility]) Overweight (BMI 25.0-29.9) Polycystic ovaries Backache Hirsutism Obesity Precordial pain Health care maintenance Colon cancer screening Mild intermittent asthma Severe anxiety Cocaine use, unspecified, uncomplicated Cannabis use disorder Prolonged grief disorder Mixed anxiety and depressive disorder Long-term current use of opiate analgesic Cervical cancer screening Atypical chest pain Diminished vision Forgetfulness No family history on file. Review of Systems Constitutional: Negative. HENT: Negative. Respiratory: Negative. Cardiovascular: Negative. Musculoskeletal: Positive for arthralgias, back pain and myalgias. Psychiatric/Behavioral: The patient is nervous/anxious. OBJECTIVE: Vitals: 07/30/24 1314 BP: 134/85 BP Location: Left arm Patient Position: Sitting BP Cuff Size: Adult Pulse: 102 Resp: 20 SpO2: 99% Weight: 204 lb 12.8 oz (92.9 kg) Height: 5' 5 (1.651 m) Physical Exam Constitutional: Appearance: Normal appearance. Cardiovascular: Rate and Rhythm: Normal rate and regular rhythm. Pulmonary: Effort: Pulmonary effort is normal. Breath sounds: Normal breath sounds. Abdominal: General: Abdomen is flat. Palpations: Abdomen is soft. Musculoskeletal: Right lower leg: No edema. Left lower leg: No edema. Neurological: Mental Status: She is alert. Follow Up: Follow up in about 3 months (around 10/29/2024) for chronic conditions . Current Outpatient Medications on File Prior to Visit Medication Sig Dispense Refill busPIRone (Buspar) 7.5 MG tablet TAKE 2 TABLETS BY MOUTH TWICE DAILY 120 tablet 2 DULoxetine (Cymbalta) [address] capsule Take 2 capsules (120 mg) by mouth Once per day. Do not crushor chew. 60 capsule 2 gabapentin (Neurontin) 600 MG tablet TAKE 1 TABLET BY MOUTH TWICE DAILY 60 tablet 2 hydrOXYzine HCl (Atarax) 25 MG tablet TAKE 1 TABLET BY MOUTH THREE TIMES DAILY NEEDED 90 tablet 2 lidocaine (Xylocaine) 5 % ointment Apply topically if needed in the morning, at noon, and at bedtime (pain). 30 g 3 oxyCODONE-acetaminophen (Percocet) 10-325 MG tablet Take 1 tablet by mouth every 12 (twelve) hours if needed for severe pain for up to 28 days. 56 tablet 0 [DISCONTINUED] albuterol (Ventolin HFA) 108 (90 Base) MCG/ACT inhaler Inhale 2 puffs every 4 (four)hours if needed for wheezing. 18 g 0 [DISCONTINUED] fluticasone (Flonase) 50 MCG/ACT nasal spray Administer 1 spray into each nostril inthe morning. 16 g 0 No current facility-administered medications on file prior to visit. Problem List Items Addressed This Visit Cervical cancer screening - Primary Relevant Orders Referral to Obstetrics / Gynecology Atypical chest pain Relevant Orders Referral to Cardiology Diminished vision Relevant Orders Referral to [facility] Mixed anxiety and depressive disorder Continue to follow with therapist Continue with same medications Patient will be referred to psych provider Relevant Orders Referral to Behavioral Health Mild intermittent asthma Relevant Medications albuterol (Ventolin HFA) 108 (90 Base) MCG/ACT inhaler Colon cancer screening Relevant Orders Referral to Gastroenterology Lumbosacral spondylosis without myelopathy Relevant Orders Referral to Pain Medicine Forgetfulness Blood work ordered today patient will be contacted with results Relevant Orders CBC auto differential Comprehensive Metabolic Panel Hemoglobin A1c HIV-1/2 Antigen and Antibodies, Fourth Generation, with Reflexes Hepatitis C Antibody with Reflex to HCV, RNA, Quantitative, Real-Time PCR Lipid Panel, Standard Vitamin D, 25-Hydroxy, Total, Immunoassay TSH with Reflex to Free T4 Vitamin B12/Folate, Serum Panel RPR (Monitor) with Reflex to Titer documented in this encounter Miscellaneous Notes * Assessment & Plan Note - Chayito Crawford MD - 07/30/2024 4:30 PM EDT Associated Problem(s): Mixed anxiety and depressive disorder Continue to follow with therapist Continue with same medications Patient will be referred to psych provider * Assessment & Plan Note - Chayito Crawford MD - 07/30/2024 4:29 PM EDT Associated Problem(s): Forgetfulness Blood work ordered today patient will be contacted with results documented in this encounter Plan of Treatment Upcoming Encounters Date Type Department Care Team (Late st Contact Info) Description 09/07/2024 11:00 AM EDT Office Visit [facility] MEDICINE [address] [place] [phone] Pending Results Name Type Priority Associated Diagnoses Date /Time Comprehensive Metabolic Panel Lab Routine Forgetfulness 08/03/2024 10:41 AM EDT Lipid Panel, Standard Lab Routine Forgetfulness 08/03/2024 10:41 AM EDT Scheduled Orders Name Type Priority Associated Diagnoses Orde r Schedule HIV-1/2 Antigen and Antibodies, Fourth Generation, with Reflexes Lab Routine Forgetfulness Expected: 07/30/2024 (Approximate), Expires: 07/30/2025 Hepatitis C Antibody with Reflex to HCV, RNA, Quantitative, Real-Time PCR Lab Routine Forgetfulness Expected: 07/30/2024, Expires: 07/30/2025 Vitamin D, 25-Hydroxy, Total, Immunoassay Lab Routine Forgetfulness Expected: 07/30/2024 (Approximate), Expires: 07/30/2025 TSH with Reflex to Free T4 Lab Routine Forgetfulness Expected: 07/30/2024 (Approximate), Expires: 07/30/2025 Vitamin B12/Folate, Serum Panel Lab Routine Forgetfulness Expected: 07/30/2024, Expires: 07/30/2025 RPR (Monitor) with Reflex to??Titer Lab Routine Forgetfulness Expected: 07/30/2024, Expires: 07/30/2025 Scheduled Referrals Name Type Priority Associated Diagnoses Order Schedule Referral to Obstetrics / Gynecology Outpatient Referral Routine Cervical cancer screening Expected: 07/30/2024 (Approximate), Expires: 07/30/2025 Referral to Cardiology Outpatient Referral Routine Atypical chest pain Expected: 07/30/2024 (Approximate), Expires: 07/30/2025 Referral to [facility] Outpatient Referral Routine Diminished vision Expected: 07/30/2024 (Approximate), Expires: 07/30/2025 Referral to Behavioral Health Outpatient Referral Routine Mixed anxiety and depressive disorder Expected: 07/30/2024 (Approximate), Expires: 07/30/2025 Referral to Gastroenterology Outpatient Referral Routine Colon cancer screening Expected: 07/30/2024 (Approximate), Expires: 07/30/2025 Referral to Pain Medicine Outpatient Referral Routine Lumbosacral spondylosis without myelopathy Expected: 07/30/2024 (Approximate), Expires: 07/30/2025 documented as of this encounter Procedures Procedure Name Priority Date/Time Associated Diagnosis Comments CBC WITH AUTO DIFFERENTIAL Routine 08/03/2024 10:41 AM EDT Forgetfulness HEMOGLOBIN A1C Routine 08/03/2024 10:41 AM EDT Forgetfulness LIPID PANEL, STANDARD Routine 08/03/2024 10:41 AM EDT Forgetfulness COMPREHENSIVE METABOLIC PANEL Routine 08/03/2024 10:41 AM EDT Forgetfulness documented in this encounter Results * Hemoglobin A1c (08/03/2024 10:41 AM EDT) Hemoglobin A1c 5.6 <6.0 % [facility] Comment:Hemoglobin A1C Refer ence Range Adults: 4.8 - 6.0 % Non diabetic: < 6.0 % Goal: < 7.0 %Additional Action Suggested: > 8.0 %Note: Hemoglobin A1c results are invalid for patients with abnormal amounts of HbF. Blood transfusions may impact the HbA1c concentration in the patient sample. Estimated Average Glucose 114 mg/dL [facility] Comment:eAG = Estimated ave rage glucose which is %A1C expressed asaverage glucose, using the formula of the Z2T-PonjkmgNsaplsk Glucose study (ADAG), Diabetes Care, Vol.31,#8,Nov. 2007 Blood Venous blood specimen / Unknown 08/03/2024 10:41 AM EDT 08/03/2024 11:02 AM EDT us Chayito Crawford MD LAB BLOOD ORDERABLES Final Result [facility] [address] [place] [address] [phone] * (ABNORMAL) CBC auto differential (08/03/2024 10:41 AM EDT) White Blood Count 7.1 4.8 - 10.8 X10*3/uL [facility] Red Blood Count 4.79 4.20 - 5.50 X10*6/uL [facility] Hemoglobin 13.5 12.0 - 16.0 g/dl [facility] Hematocrit 40.0 37.0 - 47.0 % [facility] Mean Corpuscular Volume 83.5 80.0 - 98.0 fL [facility] Mean Corpuscular Hemoglobin 28.2 27.0 - 33.0 pg [facility] Mean Corpuscular HGB Conc 33.8 31.0 - 35.0 g/dl [facility] Red Cell Distribution Width 13.6 11.0 - 16.0 % [facility] Platelet Count 244 160 - 400 X10*3/uL [facility] Mean Platelet Volume 9.6 9.4 - 12.3 fL [facility] Neutrophils Percent Auto 54.5 45 - 73 % [facility] Imm Gran Pct Auto 0.3 0.0 - 0.4 % [facility] Lymphocytes Percent Auto 29.7 20 - 40 % [facility] Monocytes Percent Auto 8.6 2 - 11 % [facility] Eosinophils Percent Auto 6.1(H) 0 - 4 % [facility] Basophils Percent Auto 0.8 0 - 2 % [facility] NRBC Pct Auto 0.0 0.0 - 0.2 /100WBC [facility] Neutrophils Absolute Auto 3.8 2.0 - 8.3 x10*3/uL [facility] Imm Gran Abs Auto 0.02 0.00 - 0.03 X10*3/uL [facility] Lymphocytes Absolute Auto 2.1 1.2 - 4.9 X10*3/uL [facility] Monocytes Absolute Auto 0.6 0.1 - 1.2 X10*3/uL [facility] Eosinophils Absolute Auto 0.4 0.0 - 0.4 X10*3/uL [facility] Basophils Absolute Auto 0.1 0.0 - 0.2 X10*3/uL [facility] NRBC Abs Auto 0.000 0.0 - 0.012 X10*3/uL [facility] Blood Venous blood specimen / Unknown 08/03/2024 10:41 AM EDT 08/03/2024 11:02 AM EDT us Chayito Crawford MD LAB BLOOD ORDERABLES Final Result Performing Organization Address City/State/[facility] Co de Phone Number [facility] [address] [place] [phone] documented in this encounter Visit Diagnoses Diagnosis Cervical cancer screening- Primary Screening for malignant neoplasm of the cervix Atypical chest pain Other chest pain Diminished vision Unspecified visual loss Mixed anxiety and depressive disorder Dysthymic disorder Mild intermittent asthma, unspecified whether complicated Colon cancer screening Special screening for malignant neoplasms, colon Lumbosacral spondylosis without myelopathy Forgetfulness Other general symptoms documented in this encounter Additional Health Concerns Assessment Noted Time PHQ-9 Depression Total Score: 12 025 1:11 PM EDT documented as of this encounter Care Teams Quality Control Tester Relationship Specialty Start Date End Date Chayito Causey MD [address] [place] [phone] PCP - General Family Medicine 04/01/19 documented as of this encounter
--- OUTSIDE RECORDS SUMMARY | 2024-08-03 12:47 | XMS_ITS | Encounter Summary ---
Author Organization [facility] Address [address] [place] [address] [address] [place] [address] Care Team Providers Care Research Program Intern Name Role Phone Chayito Causey MD Primary Care Provide r Reason for Visit * Reason Comments Med Refill Encounter Details Date Type Department Care Team (Late Contact Info) Description 02/19/2023 Refill [facility] [address] [place] [phone] Chayito Causey MD [address] [place] [address] [phone] Other chronic pain Social History Tobacco Use [...] Description 09/07/2024 11:00 AM EDT Office Visit [facility] [address] [place] [phone] documented as of this encounter Visit Diagnoses Diagnosis Other chronic pain documented in this encounter Care Teams Research Program Intern Relationship Specialty Start Date End Date Chayito Causey MD [address] [place] [address] [phone] PCP - General Family Medicine 04/01/19 documented as of this encounter
--- OUTSIDE RECORDS SUMMARY | 2024-08-03 12:47 | XMS_ITS | Encounter Summary ---
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 PCP DR. Cordova documented in this encounter Plan of Treatment Upcoming Encounters Date Type Department Care Team (Late st Contact Info) Description 09/07/2024 11:00 AM EDT Office Visit [facility] [address] [place] [phone] documented as of this encounter Visit Diagnoses Diagnosis Other chronic pain documented in this encounter Care Teams Section Forest Fire Warden Relationship Specialty Start Date End Date Chayito Causey MD [address] [place] [phone] PCP - General Family Medicine 04/01/19 documented as of this encounter
--- OUTSIDE RECORDS SUMMARY | 2024-08-03 12:47 | XMS_ITS | Clinical Summary ---
Author Organization [employer] Address [address] [place] [address] Care Team Providers Care Shale Miner Name Role Phone Chayito Causey MD Primary Care Provide r Allergies No known active allergies Medications * This document contains information received from the source organization and may not represent a complete record from that organization. hydrOXYzine HCl (Atarax) 25 MG tabletIndicatio ns:Mixed anxiety and depressive disorder TAKE 1 TABLET BY MOUTH THREE TIMES DAILY NEEDED 90 tablet 2 03/11/20 24 Active busPIRone (Buspar) 7.5 MG tabletIndicatio ns:Mixed anxiety and depressive disorder TAKE 2 TABLETS BY MOUTH TWICE DAILY 120 tablet 2 03/11/20 24 Active DULoxetine (Cymbalta) [address] capsuleIndicati ons:Mixed anxiety and depressive disorder Take 2 capsules (120 mg) by mouth Once per day. Do not crush or chew. 60 capsule 2 03/31/20 24 Active gabapentin (Neurontin) 600 MG tabletIndicatio ns:Other chronic pain TAKE 1 TABLET BY MOUTH TWICE DAILY 60 tablet 2 03/31/20 24 Active lidocaine (Xylocaine) 5 % ointmentIndicat ions:Lumbosacra l spondylosis without myelopathy Apply topically if needed in the morning, at noon, and at bedtime (pain). 30 g 3 07/07/19 25 026 Active albuterol (Ventolin HFA) 108 (90 Base) MCG/ACT inhalerIndicati ons:Mild intermittent asthma, unspecified whether complicated Inhale 2 puffs every 4 (four) hours if needed for wheezing. 18 g 1 07/31/19 25 Active oxyCODONE-aceta minophen (Percocet) 10-325 MG tabletIndicatio ns:Lumbosacral spondylosis without myelopathy Take 1 tablet by mouth every 12 (twelve) hours if needed for severe pain for up to 28 days. 56 tablet 08/04/19 25 025 Active fluticasone (Flonase) 50 MCG/ACT nasal sprayIndication s:COVID-19 Administer 1 spray into each nostril in the morning. 16 g 04/24/20 22 025 Discontinued albuterol (Ventolin HFA) 108 (90 Base) MCG/ACT inhalerIndicati ons:Mild intermittent asthma, unspecified whether complicated Inhale 2 puffs every 4 (four) hours if needed for wheezing. 18 g 10/08/19 24 025 Discontinued(R eorder (will not trigger notification to Pharmacy)) oxyCODONE-aceta minophen (Percocet) 10-325 MG tabletIndicatio ns:Lumbosacral spondylosis without myelopathy TAKE 1 TABLET BY MOUTH EVERY TWELVE HOURS NEEDED FOR SEVERE PAIN FOR UP TO 28 DAYS 56 tablet 06/09/19 25 025 Discontinued(R eorder (will not trigger notification to Pharmacy)) oxyCODONE-aceta minophen (Percocet) 10-325 MG tabletIndicatio ns:Lumbosacral spondylosis without myelopathy Take 1 tablet by mouth every 12 (twelve) hours if needed for severe pain for up to 28 days. 56 tablet 07/08/19 25 025 Discontinued(R eorder (will not trigger notification to Pharmacy)) Active Problems Problem Noted Date Diagnosed Date Cervical cancer screening 07/30/2024 Atypical chest pain 07/30/2024 Diminished vision 07/30/2024 Forgetfulness 07/30/2024 Assessment & Plan (07/30/2024 4:29 PM EDT): Blood work ordered today patient will be contacted with results Long-term current use of opiate analgesic 2023 Overview (07/08/2024): Medication: Percocet 10-325 Q12H BID Indication: lumbosacral spondylosis w/o myelopathy Last SCIENCE ANALYST Agreement: 05/11/24 Tier I (monthly visits) (re-eval August 2024 per PCP) Assessment & Plan (07/08/2024 10:40 AM EDT): Timeline: - 07/08/23: NCNS to Group Visit - 10/07/23: NCNS to Group Visit - 11/04/23: Initial Group visit. Pill count as expected, UTOX Positive Cocaine (lab confirmed) - 11/12/23: Discussion between PCP, SCIENCE ANALYST RN regarding consideration of taper - 12/01/23: random pill count OFF by 6, Utox WNL - 12/09/23: Group visit, UTOX/pill count WNL - 02/17/24: Group visit, pill count OFF by 1, Utox WNL - 03/23/24: Group visit, pill count/UTOX WNL - 05/11/24: Group - pill count/utox WNL - 06/08/24: Group - pill count/utox WNL -07/06/24: Group - pill count OFF by 1, utox WNL Assessment & Plan (06/10/2024 5:28 PM EST): Timeline: - 06/25/23: SCIENCE ANALYST agreement, forgot pills (f/up RN TC was MARCOS), Utox, WNL - 07/08/23: NCNS to Group Visit - 10/07/23: NCNS to Group Visit - 11/04/23: Initial Group visit. Pill count as expected, UTOX Positive Cocaine (lab confirmed) - 11/12/23: Discussion between PCP, SCIENCE ANALYST RN regarding consideration of taper - 12/01/23: random pill count OFF by 6, Utox WNL - 12/09/23: Group visit, UTOX/pill count WNL - 02/17/24: Group visit, pill count OFF by 1, Utox WNL - 03/23/24: Group visit, pill count/UTOX WNL - 05/11/24: Group - pill count/utox WNL - 06/08/24: Group - pill count/utox WNL Assessment & Plan (05/11/2024 5:50 PM EST): Timeline: - 06/25/23: SCIENCE ANALYST agreement, forgot pills (f/up RN TC was WNL), Utox, WNL - 07/08/23: NCNS to Group Visit - 10/07/23: NCNS to Group Visit - 11/04/23: Initial Group visit. Pill count as expected, UTOX Positive Cocaine (lab confirmed) - 11/12/23: Discussion between PCP, SCIENCE ANALYST RN regarding consideration of taper - 12/01/23: random pill count OFF by 6, Utox WNL - 12/09/23: Group visit, UTOX/pill count WNL - 02/17/24: Group visit, pill count OFF by 1, Utox WNL - 03/23/24: Group visit, pill count/UTOX WNL - 05/11/24: Group - pill count/utox WNL Assessment & Plan (03/23/2024 6:14 PM EST): Timeline: - 06/25/23: SCIENCE ANALYST agreement, forgot pills (f/up RN TC was WNL), Utox, WNL - 07/08/23: NCNS to Group Visit - 10/07/23: NCNS to Group Visit - 11/04/23: Initial Group visit. Pill count as expected, UTOX Positive Cocaine (lab confirmed) - 11/12/23: Discussion between PCP, SCIENCE ANALYST RN regarding consideration of taper - 12/01/23: random pill count OFF by 6, Utox WNL - 12/09/23: SCIENCE ANALYST Group visit, UTOX/pill count WNL - 02/17/24: SCIENCE ANALYST group visit, pill count OFF by 1, Utox WNL - 03/23/24: SCIENCE ANALYST group visit, pill count/UTOX WNL Assessment & Plan (02/17/2024 5:10 PM EDT): -Good engagement and participation with Group Medical Visit model -Encouraged multifactorial approach to pain control including pharm and non- pharm modalities -See public health doctor for pill count/UTOX results Mixed anxiety and depressive disorder 07/22/2023 Assessment & Plan (07/30/2024 4:30 PM EDT): Continue to follow with therapist Continue with same medications Patient will be referred to psych provider Assessment & Plan (07/22/2023 11:52 AM EDT): C/w buspar 7.5mg BID C/w duloxetin F/u with therapist Severe anxiety 07/03/2023 Cocaine use, unspecified, uncomplicated 07/03/19 24 Cannabis use disorder 07/03/2023 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 Health care maintenance 06/03/2023 Colon cancer screening 06/03/2023 Mild intermittent asthma 06/03/2023 Precordial pain 01/02/2023 Carpal tunnel syndrome 04/24/2022 Assessment & Plan (07/22/2023 11:52 AM EDT): Wrist braces will be prescribe NCS Overweight (BMI 25.0-29.9) 06/10/2017 Lumbosacral spondylosis without myelopathy 04/25 Assessment & Plan (07/08/2024 10:38 AM EDT): -Good engagement and participation with Group Medical Visit model -Encouraged multifactorial approach to pain control including pharm and non- pharm modalities -Pill count off by 1, UTOX as expected Assessment & Plan (06/10/2024 5:28 PM EST): -Good engagement and participation with Group Medical Visit model -Encouraged multifactorial approach to pain control including pharm and non- pharm modalities -Pill count and UTOX as expected Assessment & Plan (05/11/2024 5:49 PM EST): -Good engagement and participation with Group Medical Visit model -Encouraged multifactorial approach to pain control including pharm and non- pharm modalities -Pill count and UTOX as expected Assessment & Plan (03/23/2024 6:53 AM EST): -Good engagement and participation with Group Medical Visit model -Encouraged multifactorial approach to pain control including pharm and non- pharm modalities -Pill count as expected, UTOX Assessment & Plan (12/09/2023 2:27 PM EDT): -Good engagement and participation with Group Medical Visit model -Encouraged multifactorial approach to pain control including pharm and non- pharm modalities -Pill count as expected, UTOX Assessment & Plan (11/04/2023 4:22 PM EDT): -Good engagement and participation with Group Medical Visit model, today was first visit. -Encouraged multifactorial approach to pain control including pharm and non- pharm modalities -Pill count as expected, UTOX not as expected - POSITIVE cocaine. Sending out for confirmation. Assessment & Plan (06/03/2023 3:28 PM EST): I will order again XRAY after this I will possibly order MRI and refer patient to specialist Severe episode of recurrent major depressive disorder, without psychotic features 05/05/2012 Assessment & Plan (07/03/2023 8:29 AM EST): ID: Shanae is a 48 y.o. straight-identified cis-female with previous documented hx of Depression. MH services including OP Psychotherapy and psychopharmacology; who presents for Anxiety and Depression. Lives with 12 y/o daughter, not working currently due to back problems, applying to [employer]. Hx of cocaine use daily, was vicky to cut down, cannabis use daily to aid with sleep, pain and anxiety sxs. During IBH Consult Shanae presenting with depressed mood, loss of interests/pleasure , changes in sleep difficulty falling asleep and difficulty staying asleep , change in appetite or weight reduce appetite, psychomotor agitation, trouble concentrating, fatigue/loss of energy, worthlessness , excessive worry/anxiety, difficulty controlling worry, restless/keyed up/On edge, easily fatigued, difficulty concentrating/Mind going blank , irritability, muscle tension, and sleep disturbance difficulty falling asleep and difficulty staying asleep , Abnormally elevated mood, Decreased need for sleep, Flight of ideas, Excessive goal directed activity, and Changes in self-image, and continued use despite physical or psychological problem (potentially related or made worse by use) , used to use cocaine on a daily basis now she cuts down to every 2 months when socializing, use cannabis daily, to aid with sleep, anxiety and pain; for a period of 18+ mo, for all symptoms in the context of mother passing 6 years ago, oldest brother that was her paternal figure passed 4 months ago, health issues that make her dependant of 12 y/o daughter, lack of support, loneliness and back issues . PLAN: New/Additional Services needed Off-site services for Behavioral Health Integration Plan Internal Follow up with [facility] External OP therapy referral and OP psychiatry Referral Patient Self Plan Patient to utilize skills provided in intervention , Patient to reach out to [facility] team as needed, and Patient to reach out to [facility] as needed Assessment & Plan (06/03/2023 3:29 PM EST): Counseling done Patient declines BHN today but accepted referral I will try buspar 7.5mg BID RTC 4 weeks televisit Obesity 05/05/2012 Allergic rhinitis 09/12/2011 Polycystic ovaries 09/12/2011 Backache 09/12/2011 Hirsutism 09/12/2011 Encounters Date Type Department Care Team Description 08/03/2024 Travel 08/03/2024 Refill [facility] [address] [place] [id number] Chayito Causey MD Lumbosacral spondylosis without myelopathy 07/30/2024 1:30 PM EDT Office Visit [address] [phone] Chayito Causey MD Cervical cancer screening (Primary Dx); Atypical chest pain; Diminished vision; Mixed anxiety and depressive disorder; Mild intermittent asthma, unspecified whether complicated; Colon cancer screening; Lumbosacral spondylosis without myelopathy; Forgetfulness 07/30/2024 Travel 07/22/2024 Telephone [facility] [address] [place] [phone] Miriam Ness, RN 07/22/2024 Patient Outreach [address] [phone] Chayito Causey MD Care Coordination ([facility], TC initial outreach_enrolled ) 07/22/2024 Patient Outreach [facility] [address] [place] [id number] Chayito Causey MD Care Coordination ([facility], Chart Review ) 07/22/2024 Patient Outreach [facility] [address] [facility] [place] [address] Chayito Causey MD 07/09/2024 Population Health Risk Score [facility] ([facility] [address] [phone] Provider, Population Health Generic 07/06/2024 11:00 AM EDT Office Visit [facility] [address] [place] [address] Alana Yeung FNP Lumbosacral spondylosis without myelopathy (Primary Dx); Long-term current use of opiate analgesic 07/06/2024 Refill [facility] [address] [place] [address] Chayito Causey MD Lumbosacral spondylosis without myelopathy 07/06/2024 Travel 06/08/2024 11:00 AM EST Office Visit [facility] [address] [place] [address] Alana Yeung FNP Lumbosacral spondylosis without myelopathy (Primary Dx); Long-term current use of opiate analgesic 06/08/2024 Refill [facility] [address] [place] [address] Chayito Causey MD Lumbosacral spondylosis without myelopathy 06/08/2024 Travel 05/11/2024 11:00 AM EST Office Visit [facility] [address] [place] [address] Alana Yeung FNP Lumbosacral spondylosis without myelopathy (Primary Dx); Long-term current use of opiate analgesic 05/11/2024 Telephone [facility] [address] [place] [address] Nina Jin, STELLA SCIENCE ANALYST AGreement renewd today 05/11/2024 Refill [facility] [address] [place] [address] Nina Jin RN Lumbosacral spondylosis without myelopathy 05/11/2024 Travel from Last 3 Months Immunizations Name Administration Dates Next Due Hep B, Adolescent or Pediatric 09/21/2009,2008,01/13/2009 Influenza injectable quadriv alent preservative free 06/03/2023,04/05/2016 Influenza, IIV3, injectable 04/25/2014 Influenza, Split (incl. maria a fied surface antigen) 01/25/2013,05/05/2012 Pfizer Covid-19 Vaccine 12+ 06/03/2023 Tdap 04/25/2014 Social History Tobacco Use Types Packs/Day Years Used Date Smoking Tobacco: Never Passive Smoke Exposure: Never Smokeless Tobacco: Never Tobacco Cessation:Counseling Given: Not Answered Alcohol Answer Date Recorded How often do [...] Orientation Straight 02/25/2022 10 :18 AM EDT Last Filed Vital Signs Vital Sign Reading Time Taken Comments Blood Pressure 134/85 07/30/2024 1:14 PM EDT Pulse 102 07/30/2024 1:14 PM EDT Temperature 36.3 ??C (97.4 ??F) 01/20/2024 1 1:14 AM EDT Respiratory Rate 20 07/30/2024 1:14 PM EDT Oxygen Saturation 99% 07/30/2024 1:14 PM EDT Inhaled Oxygen Concentration - - Weight 92.9 kg (204 lb 12.8 oz) 07/30/2024 1:14 PM EDT Height 165.1 cm (5' 5 ) 07/30/2024 1:14 PM EDT Body Mass Index 34.08 07/30/2024 1:14 PM EDT Plan of Treatment Upcoming Encounters Date Type Department Care Team (Late st Contact Info) Description 09/07/2024 11:00 AM EDT Office Visit [facility] [address] [place] [address] Health Maintenance Due Date Last Done Comments CT Colonography 1975 Colonoscopy 1977 Colorectal Cancer Screening 1975 FIT DNA/Cologuard 1977 FIT 1975 FOBT 1975 Sigmoidoscopy 1975 Family Planning (PISQ) 1992 Hepatitis B Vaccines (1 of 3 - 19+ 3-dose series) 1996 09/21/2009, 03/01/2009, 01/13/2009 Pneumococcal Vaccine: Pediatrics (0 to 5 Years) and At-Risk Patients (6 to 49) Years) (1 of 2 - PCV) 1996 Pap Smear 1998 Cervical Cancer Screening 2007 HPV/Cotest 2007 COVID-19 Vaccine ( season) 2023 06/03/2023, 09/28/2020, 08/23/2020 Influenza Vaccine (#1) 2023 , 04/05/2016, 04/25/2014, Additional history exists DTaP/Tdap/Td Vaccines (2 - Td or Tdap) 04/25/2024 04/25/2014 Mammogram 06/13/2024 06/13/2023 Depression Monitoring (PHQ-9) 01/29/2025 07/30/2024, 07/30/2024 SDOH Screening 07/22/2025 07/22/2024 Alcohol/Substance Use Screening 07/30/2025 07/30/2024 Depression Screening 07/30/2025 07/30/2024, 07/31/19 Tobacco Screening 07/30/2025 07/30/2024 Zoster Vaccines (1 of 2) 2027 Lipid Panel 06/04/2028 08/03/2024, 10/2023, 06/16/2020 RSV Patients and Patients Aged 60 years or older (1 - 1-dose 75+ series) 2052 HIV Screening Completed 06/04/2023 Hepatitis C Screening Completed 06/04/2023 HIB Vaccines Aged Out No longer eligi ble based on patient's age to complete this topic HPV Vaccines Aged Out No longer eligi ble based on patient's age to complete this topic Hepatitis A Vaccines Aged Out No long er eligible based on patient's age to complete this topic IPV Vaccines Aged Out No longer eligi ble based on patient's age to complete this topic Meningococcal Vaccine Aged Out No [place] eligible based on patient's age to complete this topic RSV under 20 months Aged Out No longe r eligible based on patient's age to complete this topic Rotavirus Vaccines Aged Out No longer eligible based on patient's age to complete this topic Procedures Procedure Name Priority Date/Time Associated Diagnosis Comments LIPID PANEL, STANDARD Routine 08/03/2024 10:41 AM EDT Forgetfulness HEMOGLOBIN A1C Routine 08/03/2024 10:41 AM EDT Forgetfulness COMPREHENSIVE METABOLIC PANEL Routine 08/03/2024 10:41 AM EDT Forgetfulness CBC WITH AUTO DIFFERENTIAL Routine 08/03/2024 10:41 AM EDT Forgetfulness POCT RENETTA-14 URINE DRUG SCREEN Routine 07/06/2024 11:49 AM EDT Lumbosacral spondylosis without myelopathy POCT RENETTA-14 URINE DRUG SCREEN Routine 06/08/2024 1:48 PM EST Long-term current use of opiate analgesic POCT RENETTA-14 URINE DRUG SCREEN Routine 05/11/2024 1:53 PM EST Lumbosacral spondylosis without myelopathy BI MAMMOGRAM SCREENING TOMOSYNTHESIS BILATERAL Routine 06/13/2023 12:50 PM EST HEPATITIS C AB W/REFL TO HCV RNA, QN, PCR Routine 06/04/2023 10:28 AM EST Health care maintenance HIV 1/2 ANTIGEN/ANTIBODY, FOURTH GENERATION W/RFL Routine 06/04/2023 10:28 AM EST Health care maintenance from Last 3 Months or Most Recently Relevant to Health Maintenance Results * (ABNORMAL) CBC auto differential (08/03/2024 10:41 AM EDT) White Blood Count 7.1 4.8 - 10.8 X10*3/uL [facility] Red Blood Count 4.79 4.20 - 5.50 X10*6/uL [facility] Hemoglobin 13.5 12.0 - 16.0 g/dl [facility] Hematocrit 40.0 37.0 - 47.0 % [facility] Mean Corpuscular Volume 83.5 80.0 - 98.0 fL [facility] Mean Corpuscular Hemoglobin 28.2 27.0 - 33.0 pg [facility] Mean Corpuscular HGB Conc 33.8 31.0 - 35.0 g/dl [facility] Red Cell Distribution Width 13.6 11.0 - 16.0 % [facility] Platelet Count 244 160 - 400 X10*3/uL [facility] Mean Platelet Volume 9.6 9.4 - 12.3 fL [facility] Neutrophils Percent Auto 54.5 45 - 73 % [facility] Imm Gran Pct Auto 0.3 0.0 - 0.4 % [facility] Lymphocytes Percent Auto 29.7 20 - 40 % [facility] Monocytes Percent Auto 8.6 2 - 11 % [facility] Eosinophils Percent Auto 6.1(H) 0 - 4 % [facility] Basophils Percent Auto 0.8 0 - 2 % [facility] NRBC Pct Auto 0.0 0.0 - 0.2 /100WBC [facility] Neutrophils Absolute Auto 3.8 2.0 - 8.3 x10*3/uL [facility] Imm Gran Abs Auto 0.02 0.00 - 0.03 X10*3/uL [facility] Lymphocytes Absolute Auto 2.1 1.2 - 4.9 X10*3/uL [facility] Monocytes Absolute Auto 0.6 0.1 - 1.2 X10*3/uL [facility] Eosinophils Absolute Auto 0.4 0.0 - 0.4 X10*3/uL [facility] Basophils Absolute Auto 0.1 0.0 - 0.2 X10*3/uL [facility] NRBC Abs Auto 0.000 0.0 - 0.012 X10*3/uL [facility] Blood Venous blood specimen / Unknown 08/03/2024 10:41 AM EDT 08/03/2024 11:02 AM EDT Chayito Crawford MD LAB BLOOD ORDERABLES Final Result [facility] [address] [place] [address] [phone] * Hemoglobin A1c (08/03/2024 10:41 AM EDT) Hemoglobin A1c 5.6 <6.0 % [facility] Comment:Hemoglobin A1C Refer ence Range Adults: 4.8 - 6.0 % Non diabetic: < 6.0 % Goal: < 7.0 %Additional Action Suggested: > 8.0 %Note: Hemoglobin A1c results are invalid for patients with abnormal amounts of HbF. Blood transfusions may impact the HbA1c concentration in the patient sample. Estimated Average Glucose 114 mg/dL [facility] Comment:eAG = Estimated ave rage glucose which is %A1C expressed asaverage glucose, using the formula of the T8L-BvrpavmRmfshnc Glucose study (ADAG), Diabetes Care, Vol.31,#8,Nov. 2007 Blood Venous blood specimen / Unknown 08/03/2024 10:41 AM EDT 08/03/2024 11:02 AM EDT us Chayito Crawford MD LAB BLOOD ORDERABLES Final Result [facility] [address] [place] [phone] * POCT RENETTA-14 Urine Drug Screen (07/06/2024 11:49 AM EDT) Only the most recent of3 resultswithin the time period is included. THC Positive Oxycodone Screen, Urine Positive Urine Urine specimen obtained by clean catch procedure / Unknown 07/06/2024 11:49 AM EDT Nina Strong RN - 07/06/2024 11:49 AM EDT UTOX cup Lot#[id number] Exp. 12/15/25 Internal Pass Control us Alana Yeung CIRCUS ROUSTABOUT POINT OF CARE TEST ENTER/EDIT ORDERABLES Final Result * BI Mammogram Screening Tomosynthesis Bilateral (06/13/2023 12:50 PM EST) Anatomical Region Laterality Modality Breast Bilateral Mammography 06/13/2023 12:5 0 PM EST Narrative 07/08/2023 12:41 PM EDT ? [facility] ? [address] ?[place] [address] ? Mammography Report ? Signed ? Patient: Mamadou,Shanae ?MR#: [id number] ?? 6 ? : 1975 ?Acct:[id number] ? Age/Sex: 48 / F ?ADM Date: 02/16/24 ? Loc: HO.MAMMO ? Attending Dr: Chayito Crawford MD ? Ordering Physician: Chayito Causey MD ?Results: ?? 1Negative ? Date of Service: 06/13/23 ?Follow Up: 1 Year From Orig ?? inal Mammogram ? Procedure(s): MM tomosynthesis screening BI ?? Accession Number(s): [id number] ? cc: Chayito Causey MD ? EXAMINATION: ?? MM SCREENING DIGITAL BREAST TOMOSYNTHESIS, BILATERAL ? CLINICAL INFORMATION: ? Screening. Asymptomatic. ? COMPARISON: ?? Mammography: There are no prior mammograms for comparison. This is a ?? baseline study. ? TECHNIQUE: ?? Digital breast tomosynthesis is performed in both the craniocaudal and ?? mediolateral oblique views along with computer-aided detection (CAD). ?? Synthesized 2D images are generated from the tomosynthesis. ? FINDINGS: ?? The breasts are almost entirely fatty (ACR BI-RADS breast composition ?? Category a). ? There are no significant masses, abnormal calcifications, or other ?? abnormalities. ? MM/MM tomosynthesis screening BI ?? IMPRESSION: ?? No mammographic evidence of malignancy. ? ASSESSMENT: ? BI-RADS BI-RADS 1 - Negative ? RECOMMENDATION: ?? Routine annual mammography screening. ? 1 year F/U ? This examination should not preclude the clinical evaluation of a ?? suspicious palpable abnormality. ? This patient's information was entered into a reminder system with a ?? target due date for their next mammogram. ? Dictated By: ?Lois Ricci MD ? Signed By: ?<Electronically signed by Lois Ricci MD in OV> ? 07/08/23 1237 ? DD/ 1250 ? TD/TT: ? Formula Technician: ? Procedure Note Donotuseinterpreter, Image - 07/08/2023 [facility] [address] [place] [address] Mammography Report Signed Patient: Brice Cedillo#: [id number] 6 : 1975Acct:[id number] Age/Sex: 48 / FADM Date: 06/13/23 Loc: HO.MAMMO Attending Dr: Chayito Crawford MD Ordering Physician: Chayito Causey MDResults: 1Negative Date of Service: 06/13/23Follow Up: 1 Year From Orig inal Mammogram Procedure(s): MM tomosynthesis screening BI Accession Number(s): [id number] cc: Chayito Causey MD EXAMINATION: MM SCREENING DIGITAL BREAST TOMOSYNTHESIS, BILATERAL CLINICAL INFORMATION: Screening. Asymptomatic. COMPARISON: Mammography: There are no prior mammograms for comparison. This is a baseline study. TECHNIQUE: Digital breast tomosynthesis is performed in both the craniocaudal and mediolateral oblique views along with computer-aided detection (CAD). Synthesized 2D images are generated from the tomosynthesis. FINDINGS: The breasts are almost entirely fatty (ACR BI-RADS breast composition Category a). There are no significant masses, abnormal calcifications, or other abnormalities. MM/MM tomosynthesis screening BI IMPRESSION: No mammographic evidence of malignancy. ASSESSMENT: BI-RADS BI-RADS 1 - Negative RECOMMENDATION: Routine annual mammography screening. 1 year F/U This examination should not preclude the clinical evaluation of a suspicious palpable abnormality. This patient's information was entered into a reminder system with a target due date for their next mammogram. Dictated By: Lois Ricci MD Signed By: <Electronically signed by Lois Ricci MD in OV> 07/08/23 1237 DD/ 1250 TD/TT: Formula Technician: Chayito Crawford MD IMG BI PROCEDURES Fin al Result * Hepatitis C Antibody with Reflex to HCV, RNA, Quantitative, Real-Time PCR (06/04/2023 10:28 AM EST) Hepatitis C Antibody Nonreactive Nonreactive [facility] Comment:Antibodies to HCV no t detected; does not exclude early acuteHCV infection. Blood Venous blood specimen / Unknown 06/04/2023 10:28 AM EST 06/04/2023 11:46 AM EST Chayito Crawford MD LAB BLOOD ORDERABLES Final Result [facility] [address] [place] [phone] * HIV-1/2 Antigen and Antibodies, Fourth Generation, with Reflexes (06/04/2023 10:28 AM EST) HIV AB/AG Nonreactive Nonreactive [facility] Comment:HIV-1 p24 Ag and/or HIV-1/HIV-2 Ab not detected.A test result that is nonreactive does not exclude thepossibility of exposure to or infection with HIV-1 and/orHIV-2. Nonreactive results in this assay for individualswith prior exposure to HIV-1 and/or HIV-2 may be due toantigen and antibody levels that are below the limit ofdetection of this assay.The EverPresent HIV Ag/Ab Combo assay result andsupplemental assay results should be interpreted inconjunction with the patient's clinical presentation,history and other laboratory results. If the results areinconsistent with clinical evidence, additional testing issuggested to confirm the result. Blood Venous blood specimen / Unknown 06/04/2023 10:28 AM EST 06/04/2023 11:46 AM EST us Chayito Crawford MD LAB BLOOD ORDERABLES Final Result [facility] [address] [place] [address] [phone] from Last 3 Months or Most Recently Relevant to Health Maintenance Insurance [address] [place], [place] [address] C3 Care Teams Shale Miner Relationship Specialty Start Date End Date Chayito Causey MD [address] [place] [phone] PCP - General Family Medicine 04/01/19
--- OUTSIDE RECORDS SUMMARY | 2024-08-03 12:47 | XMS_ITS | Encounter Summary ---
Author Organization [employer] Address [address] 7[address] [place] [address] Care Team Providers Care Video Poker Floorman Name Role Phone Chayito Causey MD Primary Care Provide r Encounter Details Date Type Department Care Team (Latest Contact Info) Description 07/30/2024 Travel Social History Tobacco Use Types Packs/Day Years [...] your housing situation today? I have gloria twan 07/22/[address] you li [...] Description 09/07/2024 11:00 AM EDT Office Visit [facility] [address] [place] [address] documented as of this encounter Visit Diagnoses Not on filedocumented in this encounter Additional Health Concerns Assessment Noted Time PHQ-9 Depression Total Score: 12 025 1:11 PM EDT documented as of this encounter Care Teams Video Poker Floorman Relationship Specialty Start Date End Date Chayito Causey MD [address] [place] [address] PCP - General Family Medicine 04/01/19 documented as of this encounter
--- OUTSIDE RECORDS SUMMARY | 2024-08-03 12:47 | XMS_ITS | Encounter Summary ---
Author Organization [facility] [facility] Address [address] [place] [address] 7 [place] [address] Care Team Providers Care Billet Examiner Name Role Phone Chayito Causey MD Primary Care Provide r Reason for Visit * Reason Comments Med Refill Encounter Details Date Type Department Care Team (Late Contact Info) Description 09/02/2022 Refill [facility]INE [address] [place] [phone] Chayito Causey MD [address] [place] [address] [phone] Other chronic pain Social History Tobacco Use [...] Description 09/07/2024 11:00 AM EDT Office Visit [facility] [address] [place] [phone] documented as of this encounter Visit Diagnoses Diagnosis Other chronic pain documented in this encounter Care Teams Billet Examiner Relationship Specialty Start Date End Date Chayito Causey MD [address] [place] [address] [phone] PCP - General Family Medicine 04/01/19 documented as of this encounter
--- OUTSIDE RECORDS SUMMARY | 2024-08-03 12:47 | XMS_ITS | Encounter Summary ---
Author Organization [employer] Address [address] [place] [address] 7t [place] [address] Care Team Providers Care Admitting Clerk Name Role Phone Chayito Causey MD Primary Care Provide r Reason for Visit * Reason Onset Date Comments Nurse Triage 04/17/2023 Encounter Details Date Type Department Care Team ([facility] st Contact Info) Description 04/17/2023 Telephone [facility] [address] [place], [place] [phone] Chayito Causey MD [address] [place] [address] Nurse Triage Social History Tobacco Use Types Packs/Day Years Used Date Smoking Tobacco: Never Assessed Comments Unknown Sex and Gender Information Value Date Recorded Sex Assigned at Female 02/25/2022 10:18 AM EDT Legal Sex Female 10:18 AM EDT Gender Identity Female 02/25/2022 10:18 AM EDT Sexual Orientation Straight 02/25/2022 10 :18 AM EDT documented as of this encounter Miscellaneous Notes * Telephone Encounter - Miriam Ness RN - 04/17/2023 3:31 PM EST Triage call [facility] [place] [id number] Pt calling with questions regarding isolation , retesting , where to obtain another Covid home testand Booster immunization. Answered according to Home care protocol . Pt had no further questions and will call immunization unit to inquire about booster and if Pt has any other questions will call back. Protocol Used: COVID-19 - Diagnosed or Suspected (Adult) Care Advice Discussed: * COVID-19 - How to Protect Others - When You Are Sick With COVID-19 * Repeating a COVID-19 Viral Test * Reasons To Call Back - You have more questions * Telephone Encounter - Brooke Endy - 04/17/2023 2:55 PM EST Symptom: COVID-19 Suspected Outcome: Schedule a same-day appointment or talk to a nurse or provider today. Reason: pt states came out positive on at home Covid test on Friday, pt wanted to know how many days she has to stay at home and how can we help her get more Covid test kits. The caller accepted this outcome. Luxembourgish speaker documented in this encounter Plan of Treatment Upcoming Encounters Date Type Department Care Team (Late st Contact Info) Description 09/07/2024 11:00 AM EDT Office Visit [facility] [address] [place] [address] documented as of this encounter Visit Diagnoses Not on filedocumented in this encounter Care Teams Admitting Clerk Relationship Specialty Start Date End Date Chayito Causey MD [address] [place] [address] PCP - General Family Medicine 04/01/19 documented as of this encounter
--- OUTSIDE RECORDS SUMMARY | 2024-08-03 12:47 | XMS_ITS | Encounter Summary ---
Author Organization [employer] [facility] Address [address] [place] [address] 7 [place] [address] Care Team Providers Care Android Ui Developer Name Role Phone Chayito Causey MD Primary Care Provide r Reason for Visit * Reason Onset Date Comments Med Refill 06/04/2022 Encounter Details Date Type Department Care Team (Late st Contact Info) Description 06/04/2022 Telephone [facility] MEDICINE [address] [place] [phone] Chayito Causey MD [address] [place] [phone] Med Refill Social History Tobacco Use Types Packs/Day Years [...] * Telephone Encounter - Marry Cedillo - 06/04/2022 11:54 AM EST TC from pt calling requesting a med refill on medication Oxycodone- acetaminophen 10-325mg and Gabapentin 600mg. PCP documented in this encounter Plan of Treatment Upcoming Encounters Date Type Department Care Team (Late st Contact Info) Description 09/07/2024 11:00 AM EDT Office Visit [facility] [address] [place] [phone] documented as of this encounter Visit Diagnoses Not on filedocumented in this encounter Care Teams Android Ui Developer Relationship Specialty Start Date End Date Chayito Causey MD [address] [place] [phone] PCP - General Family Medicine 04/01/19 documented as of this encounter
--- OUTSIDE RECORDS SUMMARY | 2024-08-03 12:47 | XMS_ITS | Encounter Summary ---
Author Organization [employer] Address [address] [place] [address] 7 [place] [address] Care Team Providers Care Psychology Physician Name Role Phone Chayito Causey MD Primary Care Provide r Reason for Visit * Reason Onset Date Comments Appointment Request 04/09/2022 Encounter Details Date Type Department Care Team ([facility] st Contact Info) Description 04/09/2022 Telephone [facility] MEDICINE [address] [place] [address] [phone] Chayito Causey MD [address] [place], [place] [phone] Appointment Request Social History Tobacco Use Types Packs/Day Years Used Date Smoking Tobacco: Never Assessed Comments Unknown Sex and Gender Information Value Date Recorded Sex Assigned at Female 02/25/2022 10:18 AM EDT Legal Sex Female 10:18 AM EDT Gender Identity Female 02/25/2022 10:18 AM EDT Sexual Orientation Straight 02/25/2022 10 :18 AM EDT documented as of this encounter Miscellaneous Notes * Telephone Encounter - Claudia Nair RN - 04/10/2022 11:51 AM EST TC to pt via surgical tech Ree ID [id number], CIVIL ENGINEERING INTERN [place] scheduled for 05/02/22 at 2 pm. Pt states she willbe at her sisters' house until then. * Telephone Encounter - Eitan Nigel - 04/09/2022 2:55 PM EST Tc from pt requesting r/s COT RN APPT Please contact pt at [phone] speaks Chinese documented in this encounter Plan of Treatment Upcoming Encounters Date Type Department Care Team ([facility] st Contact Info) Description 09/07/2024 11:00 AM EDT Office Visit [facility]INE [address] [place] [address] documented as of this encounter Visit Diagnoses Not on filedocumented in this encounter Care Teams Psychology Physician Relationship Specialty Start Date End Date Chayito Causey MD [address] [place] [address] PCP - General Family Medicine 04/01/19 documented as of this encounter
--- OUTSIDE RECORDS SUMMARY | 2024-08-03 12:47 | XMS_ITS ---
Author Organization [employer] Address [address] [place] [address] Care Team Providers Care Case Advocate Name Role Phone Chayito Causey MD Primary Care Provide r [facility] Status:Enrolled (Active) Start date:07/22/2024 Enrollment date:07/22/2024 Overview SDOH - Utilities Case Team Name Relationship Phone Richelle Fong (Responsible Staff) Continued Care and Services Coordination
--- OUTSIDE RECORDS SUMMARY | 2024-08-03 12:47 | XMS_ITS | Encounter Summary ---
Author Organization [employer] [facility] Address [address] [place] [address] 7 [place] [address] Care Team Providers Care Tiller Man Name Role Phone Chayito Causey MD Primary Care Provide r Reason for Visit * Reason Comments Med Refill Encounter Details Date Type Department Care Team (Late st Contact Info) Description 04/10/2022 Refill [facility] MEDICINE [address] [place] [phone] Sangeeta Silveira MD [address] [place] [phone] Social History Tobacco Use Types Packs/Day Years [...] Description 09/07/2024 11:00 AM EDT Office Visit [facility] [address] [place] [phone] documented as of this encounter Visit Diagnoses Not on filedocumented in this encounter Care Teams Tiller Man Relationship Specialty Start Date End Date Chayito Causey MD [address] [place] [phone] PCP - General Family Medicine 04/01/19 documented as of this encounter
--- OUTSIDE RECORDS SUMMARY | 2024-08-03 12:47 | XMS_ITS | Encounter Summary ---
Author Organization [employer] [facility] Address [address] [place] [address] 7t [place] [address] Care Team Providers Care Spindraw Operator Name Role Phone Chayito Causey MD Primary Care Provide r Encounter Details Date Type Department Care Team (Late st Contact Info) Description 12/09/2023 Telephone [facility] MEDICINE [address] [place] [phone] Chayito Causey MD [address] [place] [phone] Social History Tobacco Use Types Packs/Day Years [...] Description 09/07/2024 11:00 AM EDT Office Visit [facility] [address] [place] [address] documented as of this encounter Visit Diagnoses Not on filedocumented in this encounter Additional Health Concerns Assessment Noted Time PHQ-9 Depression Total Score: 20 024 8:04 AM EST documented as of this encounter Care Teams Spindraw Operator Relationship Specialty Start Date End Date Chayito Causey MD [address] [place] [address] PCP - General Family Medicine 04/01/19 documented as of this encounter
--- OUTSIDE RECORDS SUMMARY | 2024-08-03 12:47 | XMS_ITS | Encounter Summary ---
Author Organization [employer] Address [address] [address] [place] [address] Care Team Providers Care Assistant Manager Trainee Name Role Phone Chayito Causey MD Primary Care Provide r Encounter Details Date Type Department Care Team (Latest Contact Info) Description 08/03/2024 Travel Social History Tobacco Use Types Packs/Day [...] Description 09/07/2024 11:00 AM EDT Office Visit [facility]INE [address] [place] [address] documented as of this encounter Visit Diagnoses Not on filedocumented in this encounter Additional Health Concerns Assessment Noted Time PHQ-9 Depression Total Score: 12 025 1:11 PM EDT documented as of this encounter Care Teams Assistant Manager Trainee Relationship Specialty Start Date End Date Chayito Causey MD [address] [place] [address] PCP - General Family Medicine 04/01/19 documented as of this encounter
[2024-08-03 13:03] LABS: TSH reflex Free T4 0.78 uIU/mL (0.32-4.0); Vitamin D 25-OH Total 18.8 ng/mL (>30)
[2024-08-03 13:10] LABS: Folate 5.6 ng/mL (> or = 4.0); Vitamin B12 375 pg/mL (200-900)
[2024-08-03 17:26] LABS: Methadone Screen, Urine Not Detected (Not Detect)
[2024-08-04 05:10] LABS: HIV AB/AG Nonreactive (Nonreactive); HIV Num 1 0.18 S/CO (0.00-0.99); ~HepC Num1 0.14 S/CO (0.00-0.79); ~Hepatitis C Antibody Nonreactive (Nonreactive)
[2024-08-04 14:49] LABS: RPR Rapid Plasma Reagin NON-REACTIVE (NON-REACTIVE)
== END 2024-08-03 10:40 | disposition home or self-care (01) ==
LOC: HO.HHCL 10:39
PROVIDERS: Visit Provider Internal Medicine
DX: Z79.891 Long term (current) use of opiate analgesic (principal); R68.89 Other general symptoms and signs
CPT/HCPCS: 36415; 80053; 80061; 80307; 82306; 82607; 82746; 83036; 84443; 85025; 86592; 86803; 87389

== ENCOUNTER 2024-08-12 17:42 | Outpatient (REF) | payer MEDICAID, SELFPAY ==
--- OUTSIDE RECORDS SUMMARY | 2024-08-12 18:28 | XMS_ITS | Encounter Summary ---
Author Organization [employer] [facility] Address [address] [place] [address] [address] [place] [address] Care Team Providers Care Traffic Rate Analyst Name Role Phone Chayito Causey MD Primary Care Provide r Reason for Visit * Reason Onset Date Comments Med Refill 04/19/2022 Encounter Details Date Type Department Care Team (Late st Contact Info) Description 04/19/2022 Refill [facility]INE [address] [place] [phone] Chayito Causey MD [address] [place] [phone] Other chronic pain Social History Tobacco Use [...] Description 09/07/2024 11:00 AM EDT Office Visit [facility]INE [address] [place] [phone] 11/25/2024 1:00 PM EDT Office Visit [facility] [address] [place] [address] Chayito Causey MD [address] [place] [address] documented as of this encounter Visit Diagnoses Diagnosis Other chronic pain documented in this encounter Care Teams Traffic Rate Analyst Relationship Specialty Start Date End Date Chayito Causey MD [address] [place] [phone] PCP - General Family Medicine 04/01/19 documented as of this encounter
--- OUTSIDE RECORDS SUMMARY | 2024-08-12 18:28 | XMS_ITS | Encounter Summary ---
Author Organization [employer] [facility] Address [address] [place] [address] 7 [place] [address] Care Team Providers Care Deputy Chief Magistrate Name Role Phone Chayito Causey MD Primary Care Provide r Reason for Visit * Reason Comments Med Refill Encounter Details Date Type Department Care Team (Late Contact Info) Description 04/10/2022 Refill [facility]INE [address] [place] [phone] Sangeeta Silveira MD [address] [place] [phone] Social History Tobacco Use Types Packs/Day Years [...] Description 09/07/2024 11:00 AM EDT Office Visit [facility] [address] [place] [address] [phone] 11/25/2024 1:00 PM EDT Office Visit [facility] [address] [place] [address] [phone] Chayito Causey MD [address] [place] [address] [phone] documented as of this encounter Visit Diagnoses Not on filedocumented in this encounter Care Teams Deputy Chief Magistrate Relationship Specialty Start Date End Date Chayito Causey MD [address] [place] [address] PCP - General Family Medicine 04/01/19 documented as of this encounter
--- OUTSIDE RECORDS SUMMARY | 2024-08-12 18:28 | XMS_ITS | Encounter Summary ---
Author Organization [employer] Address [address] [place] [address] 7 [place] [address] Care Team Providers Care Building Inspector Name Role Phone Chayito Causey MD Primary Care Provide r Reason for Visit * Reason Onset Date Comments Appointment Request 04/09/2022 Encounter Details Date Type Department Care Team ([facility] st Contact Info) Description 04/09/2022 Telephone [facility] MEDICINE [address] [place] [address] [phone] Chayito Causey MD [address] [place], [place] [phone] Appointment Request Social History Tobacco Use Types [...] 11:51 AM EST TC to pt via language interpreter Ree ID [id number], CLOTH BALE HEADER [place] scheduled for 05/02/22 at 2 pm. Pt states she willbe at her sisters' house until then. * Telephone Encounter - Eitan Nigel - 04/09/2022 2:55 PM EST Tc from pt requesting r/s COT RN APPT Please contact pt at [phone] speaks Amharic documented in this encounter Plan of Treatment Upcoming Encounters Date Type Department Care Team ([facility] st Contact Info) Description 09/07/2024 11:00 AM EDT Office Visit [address] [address] 11/25/2024 1:00 PM EDT Office Visit [address] [address] Chayito Causey MD [address] [place] [address] documented as of this encounter Visit Diagnoses Not on filedocumented in this encounter Care Teams Building Inspector Relationship Specialty Start Date End Date Chayito Causey MD [address] [place] [address] PCP - General Family Medicine 04/01/19 documented as of this encounter
--- OUTSIDE RECORDS SUMMARY | 2024-08-12 18:28 | XMS_ITS | Encounter Summary ---
Author Organization [employer] Address [address] [place] [address] 7t [place] [address] Care Team Providers Care Lithograph Press Feeder Name Role Phone Chayito Causey MD Primary Care Provide r Encounter Details Date Type Department Care Team ([facility] Contact Info) Description 12/09/2023 Telephone [facility] MEDICINE [address] [place] [phone] Chayito Causey MD [address] [place] [phone] Social History Tobacco Use Types Packs/Day Years [...] Encounters Date Type Department Care Team (Late Contact Info) Description 09/07/2024 11:00 AM EDT Office Visit [facility] MEDICINE [address] [place] [address] [phone] 11/25/2024 1:00 PM EDT Office Visit [facility]INE [address] [place] [address] [phone] Chayito Causey MD [address] [place] [address] documented as of this encounter Visit Diagnoses Not on filedocumented in this encounter Additional Health Concerns Assessment Noted Time PHQ-9 Depression Total Score: 20 024 8:04 AM EST documented as of this encounter Care Teams Lithograph Press Feeder Relationship Specialty Start Date End Date Chayito Causey MD [address] [place] [address] PCP - General Family Medicine 04/01/19 documented as of this encounter
--- OUTSIDE RECORDS SUMMARY | 2024-08-12 18:29 | XMS_ITS | Encounter Summary ---
Author Organization [employer] Address [address] [place] [address] 7t [place] [address] Care Team Providers Care Chuck Tender Name Role Phone Chayito Causey MD Primary Care Provide r Reason for Visit * Reason Onset Date Comments Nurse Triage 04/17/2023 Encounter Details Date Type Department Care Team ([facility] st Contact Info) Description 04/17/2023 Telephone [facility]INE [address] [place], [place] [phone] Chayito Causey MD [address] [place] [address] Nurse Triage Social History Tobacco Use Types [...] - 04/17/2023 3:31 PM EST Triage call [facility] [place] Kinder Teacher ID [id number] Pt calling with questions regarding isolation , [...] more questions * Telephone Encounter - Brooke Luo - 04/17/2023 2:55 PM EST Symptom: COVID-19 Suspected Outcome: Schedule a same-day appointment or talk to a nurse or provider today. Reason: pt states came out positive on at home Covid test on Friday, pt wanted to know how many days she has to stay at home and how can we help her get more Covid test kits. The caller accepted this outcome. Romanian speaker documented in this encounter Plan of Treatment Upcoming Encounters Date Type Department Care Team (Late st Contact Info) Description 09/07/2024 11:00 AM EDT Office Visit [facility] MEDICINE [address] [place] [phone] 11/25/2024 1:00 PM EDT Office Visit [facility]INE [address] [place] [phone] Chayito Causey MD [address] [place] [phone] documented as of this encounter Visit Diagnoses Not on filedocumented in this encounter Care Teams Chuck Tender Relationship Specialty Start Date End Date Chayito Causey MD [address] [place] [phone] PCP - General Family Medicine 04/01/19 documented as of this encounter
--- OUTSIDE RECORDS SUMMARY | 2024-08-12 18:29 | XMS_ITS | Encounter Summary ---
Author Organization [employer] [facility] Address [address] [place] [address] 7 [place] [address] Care Team Providers Care Annual Giving Director Name Role Phone Chayito Causey MD Primary Care Provide r Reason for Visit * Reason Onset Date Comments Med Refill 06/04/2022 Encounter Details Date Type Department Care Team (Late st Contact Info) Description 06/04/2022 Telephone [facility] MEDICINE [address] [place] [phone] Chayito Causey MD [address] [place] [phone] Med Refill Social History Tobacco Use Types [...] Description 09/07/2024 11:00 AM EDT Office Visit [facility]INE [address] [place] [address] [phone] 11/25/2024 1:00 PM EDT Office Visit [facility] [address] [place] [address] Chayito Causey MD [address] [place], [place] [phone] documented as of this encounter Visit Diagnoses Not on filedocumented in this encounter Care Teams Annual Giving Director Relationship Specialty Start Date End Date Chayito Causey MD [address] [place] [address] [phone] PCP - General Family Medicine 04/01/19 documented as of this encounter
--- OUTSIDE RECORDS SUMMARY | 2024-08-12 18:29 | XMS_ITS | Encounter Summary ---
Author Organization [employer] Address [address] [place] [address] 7t [place] [address] Care Team Providers Care Sorting Supervisor Name Role Phone Chayito Causey MD Primary Care Provide r Reason for Visit * Reason Comments Med Refill Encounter Details Date Type Department Care Team (Late st Contact Info) Description 04/20/2024 Refill [facility] [address] [place] [phone] Chayito Causey MD [address] [place] [phone] Lumbosacral spondylosis without myelopathy Social History Tobacco [...] Description 09/07/2024 11:00 AM EDT Office Visit [address] [address] 11/25/2024 1:00 PM EDT Office Visit [facility] [address] [place] [address], [place] [address] Chayito Causey MD [address] [place] [address] documented as of this encounter Visit Diagnoses Diagnosis Lumbosacral spondylosis without myelopathy documented in this encounter Additional Health Concerns Assessment Noted Time PHQ-9 Depression Total Score: 20 024 8:04 AM EST documented as of this encounter Care Teams Sorting Supervisor Relationship Specialty Start Date End Date Chayito Causey MD [address] [place] [address] PCP - General Family Medicine 04/01/19 documented as of this encounter
--- OUTSIDE RECORDS SUMMARY | 2024-08-12 18:29 | XMS_ITS | Encounter Summary ---
Author Organization [employer] Address [address] 7[address] [place] [address] Care Team Providers Care Food And Beverage Order Clerk Name Role Phone Chayito Causey MD Primary Care Provide r Reason for Visit * Reason Comments Med Refill Encounter Details Date Type Department Care Team ([facility] st Contact Info) Description 08/12/2024 Refill [facility] [address] [place] [address] Chayito Causey MD [address] [place] [address] Mixed anxiety and depressive disorder; Other chronic pain Social History Tobacco Use [...] Description 09/07/2024 11:00 AM EDT Office Visit [facility] [address] [place] [phone] 11/25/2024 1:00 PM EDT Office Visit [facility] [address] [place] [phone] Chayito Causey MD [address] [place] [phone] documented as of this encounter Visit Diagnoses Diagnosis Mixed anxiety and depressive disorder Dysthymic disorder Other chronic pain documented in this encounter Additional Health Concerns Assessment Noted Time PHQ-9 Depression Total Score: 12 025 1:11 PM EDT documented as of this encounter Care Teams Food And Beverage Order Clerk Relationship Specialty Start Date End Date Chayito Causey MD [address] [place] [phone] PCP - General Family Medicine 04/01/19 documented as of this encounter
--- OUTSIDE RECORDS SUMMARY | 2024-08-12 18:29 | XMS_ITS | Encounter Summary ---
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); Vasomotor symptoms due to menopause; Urinary frequency Social History Tobacco Use Types Packs/Day Years [...] Sign Reading Time Taken Comments Blood Pressure 124/70 08/12/2024 1:54 PM EDT Pulse 95 08/12/2024 1:54 PM EDT Temperature 37 ??C (98.6 ??F) 08/12/2024 1:54 PM EDT Respiratory Rate 20 08/12/2024 1:54 PM EDT Oxygen Saturation - - Inhaled Oxygen Concentration - - Weight 94.1 kg (207 lb 6.4 oz) 08/12/2024 1:54 P M EDT Height 165.1 cm (5' 5 ) 08/12/2024 1:54 PM EDT Body Mass Index 34.51 08/12/2024 1:54 PM EDT documented in this encounter Plan of Treatment Upcoming Encounters Date Type Department Care Team (Late st Contact Info) Description 09/07/2024 11:00 AM EDT Office Visit [facility] [address] [place] [phone] 11/25/2024 1:00 PM EDT Office Visit [facility] [address] [place] [phone] Chayito Causey MD [address] [place] [address] Scheduled Orders Name Type Priority Associated Diagnoses Orde r Schedule Culture, Urine, Routine Microbiology Routine Urinary frequency Ordered: 08/12/2024 documented as of this encounter Procedures Procedure Name Priority Date/Time Associated Diagnosis Comments POCT URINALYSIS DIPSTICK Routine 08/12/2024 2:27 PM EDT Urinary frequency documented in this encounter Results * (ABNORMAL) POCT Urinalysis (08/12/2024 2:27 PM EDT) Color, UA Yellow Clarity, UA Clear Glucose, UA Negative Bilirubin, UA Negative Ketones, UA Negative Spec Grav, UA 1.020 Blood, UA Positive(A) Negative, None Detected Comment:trace pH, UA 5.5 Protein, UA Negative Urobilinogen, UA 0.2 Leukocytes, UA Negative Negative, Rare, Trace Nitrite, UA Negative Negative, None Detected Appearance, UA clear QC Media Lot # [id number] Lot# Expiration Date Urine 08/12/2024 2:27 PM EDT Chayito Crawford MD POINT OF CARE TEST EN TER/EDIT ORDERABLES Final Result documented in this encounter Visit Diagnoses Diagnosis Severe episode of recurrent major depressive disorder, without psychotic features (CMS/HCC)- Primary Vasomotor symptoms due to menopause Urinary frequency documented in this encounter Additional Health Concerns Assessment Noted Time PHQ-9 Depression Total Score: 12 025 1:11 PM EDT documented as of this encounter Care Teams Camera Repairer Relationship Specialty Start Date End Date Chayito Causey MD [address] [place] [address] PCP - General Family Medicine 04/01/19 documented as of this encounter
--- OUTSIDE RECORDS SUMMARY | 2024-08-12 18:29 | XMS_ITS | Encounter Summary ---
Author Organization [employer] [facility] Address [address] [place] [address] [address] [place] [address] Care Team Providers Care Dispatcher Electric Power Name Role Phone Chayito Causey MD Primary Care Provide r Reason for Visit * Reason Comments Med Refill Encounter Details Date Type Department Care Team (Late Contact Info) Description 09/02/2022 Refill [facility] [address] [place] [phone] Chayito Causey MD [address] [place] [address] [phone] Other chronic pain Social History Tobacco Use [...] Description 09/07/2024 11:00 AM EDT Office Visit [facility] [address] [place] [address] [phone] 11/25/2024 1:00 PM EDT Office Visit [facility] [address] [place] [address] [phone] Chayito Causey MD [address] [place] [address] [phone] documented as of this encounter Visit Diagnoses Diagnosis Other chronic pain documented in this encounter Care Teams Dispatcher Electric Power Relationship Specialty Start Date End Date Chayito Causey MD [address] [place] [address] PCP - General Family Medicine 04/01/19 documented as of this encounter
--- OUTSIDE RECORDS SUMMARY | 2024-08-12 18:29 | XMS_ITS | Encounter Summary ---
Author Organization [employer] Address [address] [place] [address] 7[address] [place] [address] Care Team Providers Care Homeopathic Doctor Name Role Phone Chayito Causey MD Primary Care Provide r Reason for Visit * Reason Comments Med Refill Encounter Details Date Type Department Care Team (Late st Contact Info) Description 10/02/2022 Refill [facility] PEDS [address] [place] [address] Chayito Causey MD [address] [place] [address] [phone] Other chronic pain Social History Tobacco Use [...] 09/07/2024 11:00 AM EDT Office Visit [facility] [address] [place] [address] [phone] 11/25/2024 1:00 PM EDT Office Visit [facility] [address] [place] [address] [phone] Chayito Causey MD [address] [place] [address] [phone] documented as of this encounter Visit Diagnoses Diagnosis Other chronic pain documented in this encounter Care Teams Homeopathic Doctor Relationship Specialty Start Date End Date Chayito Causey MD [address] [place] [address] PCP - General Family Medicine 04/01/19 documented as of this encounter
--- OUTSIDE RECORDS SUMMARY | 2024-08-12 18:29 | XMS_ITS | Encounter Summary ---
Author Organization [employer] Address [address] [facility] [place] [address] Care Team Providers Care Stuffing Machine Operator Name Role Phone Chayito Causey MD Primary Care Provide r Encounter Details Date Type Department Care Team (Latest Contact Info) Description 08/12/2024 Travel Social History Tobacco Use Types Packs/Day [...] Description 09/07/2024 11:00 AM EDT Office Visit [facility] [address] [place] [phone] 11/25/2024 1:00 PM EDT Office Visit [address] [address] Chayito Causey MD [address] [place] [address] documented as of this encounter Visit Diagnoses Not on filedocumented in this encounter Additional Health Concerns Assessment Noted Time PHQ-9 Depression Total Score: 12 025 1:11 PM EDT documented as of this encounter Care Teams Stuffing Machine Operator Relationship Specialty Start Date End Date Chayito Causey MD [address] [place] [phone] PCP - General Family Medicine 04/01/19 documented as of this encounter
--- OUTSIDE RECORDS SUMMARY | 2024-08-12 18:29 | XMS_ITS | Clinical Summary ---
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 56 tablet 08/04/19 25 025 Active ergocalciferol (Vitamin D2) 1.25 MG (94919 UT) capsule Take 1 capsule (1.25 mg) by mouth 1 (one) time per week. 12 capsule 08/04/19 25 025 Active venlafaxine (Effexor) 100 MG tabletIndicatio ns:Severe episode of recurrent major depressive disorder, without psychotic features (CMS/HCC),Vasom otor symptoms due to menopause Take 1 tablet (100 mg) by mouth 2 times daily. 60 tablet 2 08/13/19 25 025 Active fluticasone (Flonase) 50 MCG/ACT nasal sprayIndication s:COVID-19 Administer 1 spray into each nostril in the morning. 16 g 04/24/20 22 025 Discontinued albuterol (Ventolin HFA) 108 (90 Base) MCG/ACT inhalerIndicati ons:Mild intermittent asthma, unspecified whether complicated Inhale 2 puffs every 4 (four) hours if needed for wheezing. 18 g 10/08/19 24 025 Discontinued(R eorder (will not trigger notification to Pharmacy)) DULoxetine (Cymbalta) [address] capsuleIndicati ons:Mixed anxiety and depressive disorder Take 2 capsules (120 mg) by mouth Once per day. Do not crush or chew. 60 capsule 2 03/31/20 24 025 Discontinued oxyCODONE-aceta minophen (Percocet) 10-325 MG tabletIndicatio ns:Lumbosacral spondylosis without myelopathy Take 1 tablet by mouth every 12 (twelve) hours if needed for severe pain for up to 28 days. 56 tablet 07/08/19 25 025 Discontinued(R eorder (will not trigger notification to Pharmacy)) Active Problems Problem Noted Date Diagnosed Date Vasomotor symptoms due to menopause 08/12/2024 Urinary frequency 08/12/2024 Moderate major depression 08/12/2024 Cervical cancer screening 07/30/2024 Atypical chest pain 07/30/2024 Diminished vision 07/30/2024 Forgetfulness 07/30/2024 Assessment & Plan (07/30/2024 4:29 PM EDT): Blood work ordered today patient will be contacted with results Long-term current use of opiate analgesic 2023 Overview (07/08/2024): Medication: Percocet 10-325 Q12H BID Indication: lumbosacral spondylosis w/o myelopathy Last RIVER [facility]ILOT Agreement: 05/11/24 Tier I (monthly visits) (re-eval August 2024 per PCP) Assessment & Plan (07/08/2024 10:40 AM EDT): Timeline: - 07/08/23: NCNS to Group Visit - 10/07/23: NCNS to Group Visit - 11/04/23: Initial Group visit. Pill count as expected, UTOX Positive Cocaine (lab confirmed) - 11/12/23: Discussion between PCP, RIVER PILOT RN regarding consideration of taper - 12/01/23: [...] (06/10/2024 5:28 PM EST): Timeline: - 06/25/23: R[facility] P[facility] agreement, forgot pills (f/up RN TC was WNL), Utox, WNL - 07/08/23: NCNS to Group Visit - 10/07/23: NCNS to Group Visit - 11/04/23: Initial Group visit. Pill count as expected, UTOX Positive Cocaine (lab confirmed) - 11/12/23: Discussion between PCP, RIVER PIL[facility] RN regarding consideration of taper - 12/01/23: [...] (05/11/2024 5:50 PM EST): Timeline: - 06/25/23: R[facility] agreement, forgot pills (f/up RN TC was WNL), Utox, WNL - 07/08/23: NCNS to Group Visit - 10/07/23: NCNS to Group Visit - 11/04/23: Initial Group visit. Pill count as expected, UTOX Positive Cocaine (lab confirmed) - 11/12/23: Discussion between PCP, RIVER PILOT RN regarding consideration of taper - 12/01/23: random pill count OFF by 6, Utox WNL - 12/09/23: Group visit, UTOX/pill count WNL - 02/17/24: Group visit, pill count OFF by 1, Utox WNL - 03/23/24: Group visit, pill count/UTOX WNL - 05/11/24: Group - pill count/utox WNL Assessment & Plan (03/23/2024 6:14 PM EST): Timeline: - 06/25/23: RIVER [facility] agreement, forgot pills (f/up RN TC was WNL), Utox, WNL - 07/08/23: NCNS to Group Visit - 10/07/23: NCNS to Group Visit - 11/04/23: Initial Group visit. Pill count as expected, UTOX Positive Cocaine (lab confirmed) - 11/12/23: Discussion between PCP, RIVER P[facility] RN regarding consideration of taper - 12/01/23: random pill count OFF by 6, Utox WNL - 12/09/23: [facility] Group visit, UTOX/pill count WNL - 02/17/24: [facility] group visit, pill count OFF by 1, Utox WNL - 03/23/24: R[facility] group visit, pill count/UTOX WNL Assessment & Plan (02/17/2024 5:10 PM EDT): -Good engagement and participation with Group Medical Visit model -Encouraged multifactorial approach to pain control including pharm and non- pharm modalities -See academy education director for pill count/UTOX results Mixed anxiety and depressive disorder 07/22/2023 Assessment & Plan (07/30/2024 4:30 PM EDT): Continue to follow with therapist Continue with same medications Patient will be referred to psych provider Assessment & Plan (07/22/2023 11:52 AM EDT): C/w buspar 7.5mg BID C/w duloxetin F/u with therapist Severe anxiety 07/03/2023 Cocaine use, unspecified, uncomplicated 07/03/19 Cannabis use disorder 07/03/2023 Prolonged grief disorder [...] currently due to back problems, applying to [employer]. Hx of cocaine use daily, was vicky [...] Health Integration Plan Internal Follow up with [facility] External OP therapy referral and OP psychiatry Referral Patient Self Plan Patient to utilize skills provided in intervention , Patient to reach out to [facility] team as needed, and Patient to reach out to [facility] as needed Assessment & Plan (06/03/2023 3:29 PM EST): Counseling done Patient declines N today but accepted referral I will try buspar 7.5mg BID RTC 4 weeks televisit Obesity 05/05/2012 Allergic rhinitis 09/12/2011 Polycystic ovaries 09/12/2011 Backache 09/12/2011 Hirsutism 09/12/2011 Encounters * This document contains information received from the source organization and may not represent a complete record from that organization. Date Type Department Care Team Description 08/12/2024 1:45 PM EDT Office Visit [facility] [address] [place] [phone] Chayito Causey MD Severe episode of recurrent major depressive disorder, without psychotic features (CMS/HCC) (Primary Dx); Vasomotor symptoms due to menopause; Urinary frequency 08/12/2024 Travel 08/12/2024 Refill [facility] [address], [place] [phone] Chayito Causey MD Mixed anxiety and depressive disorder; Other chronic pain 08/06/2024 Telephone [facility] [address] [place] [address] Mary Bonner Provide support for needs. 08/05/2024 Telephone [facility] [address] [place] [address] Chayito Causey MD Chart Prep 08/05/[address] [address] Mary Bonner Provide support for mental health needs 08/05/2024 Patient Outreach [address] [address] Chayito Causey MD Care Coordination ([facility]/CHW RAGINI Simeon [facility] f/u) 08/04/[address] [address] Chayito Causey MD Results 08/03/2024 11:00 AM EDT Clinical Support [address] [address] Elin Obregon RN Lumbosacral spondylosis without myelopathy (Primary Dx); Long-term current use of opiate analgesic 08/03/2024 Orders Only [address] [address] Jina Yates MD 08/03/2024 Telephone [facility] [address], [place] [phone] Elin Obregon, STELLA 08/03/2024 Travel 08/03/[address] [address] Chayito Causey MD Lumbosacral spondylosis without myelopathy 07/30/2024 1:30 PM EDT Office Visit [address] [address] Chayito Causey MD Cervical cancer screening (Primary Dx); Atypical chest pain; Diminished vision; Mixed anxiety and depressive disorder; Mild intermittent asthma, unspecified whether complicated; Colon cancer screening; Lumbosacral spondylosis without myelopathy; Forgetfulness 07/30/2024 Travel 07/22/[address] [address] Miriam Ness, STELLA 07/22/2024 Patient Outreach [address] [address] Chayito Causey MD Care Coordination ([facility]/W Richelle Fong, TC initial outreach_enrolled ) 07/22/2024 Patient Outreach [address] [address] Chayito Causey MD Care Coordination ([facility]/Samina Fong, Chart Review ) 07/22/2024 Patient Outreach [address] [address] Chayito Causey MD 07/09/2024 Population Health Risk Score [facility] [address] [place] [phone] Provider, Population Health Generic 07/06/2024 11:00 AM EDT Office Visit [address] [address] Alana Yeung, FARM DEMONSTRATOR Lumbosacral spondylosis without myelopathy (Primary Dx); Long-term current use of opiate analgesic 07/06/[address] [address] Chayito Causey MD Lumbosacral spondylosis without myelopathy 07/06/2024 Travel 06/08/2024 11:00 AM EST Office Visit [address] [address] Alana Yeung, FARM DEMONSTRATOR Lumbosacral spondylosis without myelopathy (Primary Dx); Long-term current use of opiate analgesic 06/08/[address] [address] Chayito Causey MD Lumbosacral spondylosis without myelopathy 06/08/2024 Travel from Last 3 Months Immunizations Name [...] 20 08/12/2024 1:54 PM EDT Oxygen Saturation 99% 07/30/2024 1:14 PM EDT Inhaled Oxygen Concentration - - Weight 94.1 kg (207 lb 6.4 oz) 08/12/2024 1:54 P M EDT Height 165.1 cm (5' 5 ) 08/12/2024 1:54 PM EDT Body Mass Index 34.51 08/12/2024 1:54 PM EDT Plan of Treatment Upcoming Encounters Date Type Department Care Team (Late st Contact Info) Description 09/07/2024 11:00 AM EDT Office Visit [address] [address] 11/25/2024 1:00 PM EDT Office Visit [address] [address] Chayito Causey MD [address] [place] [phone] Health Maintenance Due Date Last Done Comments [...] 04/25/2024 04/25/2014 Mammogram 06/13/2024 06/13/2023 Depression Monitoring 01/29/2025 07/30/2024, 025 SDOH Screening 07/22/2025 07/22/2024 Alcohol/Substance Use Screening 07/30/2025 07/30/2024 Depression Screening 07/30/2025 07/30/2024, 07/31/19 25 Tobacco Screening 08/12/2025 08/12/2024 Zoster Vaccines (1 of 2) 2027 Lipid Panel 08/03/2029 08/03/2024, 0210/2023, 06/16/2020 RSV Patients and Patients Aged 60 years or older (1 - 1-dose 75+ series) 2052 HIV Screening Completed 08/03/2024, 06/04/2023 Hepatitis C Screening Completed 08/03/2024, 024 HIB Vaccines Aged Out No longer eligi [...] Routine 08/12/2024 2:27 PM EDT Urinary frequency POCT RENETTA-14 URINE DRUG SCREEN Routine 08/03/2024 2:01 PM EDT Lumbosacral spondylosis without myelopathy Long-term current use of opiate analgesic METHADONE SCREEN, URINE Routine 08/03/2024 12:51 PM EDT Long-term current use of opiate analgesic RPR (MONITOR) W/REFL TITER Routine 08/03/2024 10:41 AM EDT Forgetfulness VITAMIN B12/FOLATE, SERUM PANEL Routine 08/03/2024 10:41 AM EDT Forgetfulness TSH W/REFLEX TO FT4 Routine 08/03/2024 1 0:41 AM EDT Forgetfulness VITAMIN D,25-OH,TOTAL,IA Routine 08/03/2024 10:41 AM EDT Forgetfulness LIPID PANEL, STANDARD Routine 08/03/2024 10:41 AM EDT Forgetfulness HEPATITIS C AB W/REFL TO HCV RNA, QN, PCR Routine 08/03/2024 10:41 AM EDT Forgetfulness HIV 1/2 ANTIGEN/ANTIBODY, FOURTH GENERATION W/RFL Routine 08/03/2024 10:41 AM EDT Forgetfulness HEMOGLOBIN A1C Routine 08/03/2024 10:41 AM EDT Forgetfulness COMPREHENSIVE METABOLIC PANEL Routine 08/03/2024 10:41 AM EDT Forgetfulness CBC WITH AUTO DIFFERENTIAL Routine 08/03/2024 10:41 AM EDT Forgetfulness POCT RENETTA-14 URINE DRUG SCREEN Routine 07/06/2024 11:49 AM EDT Lumbosacral spondylosis without myelopathy POCT RENETTA-14 URINE DRUG SCREEN Routine 06/08/2024 1:48 PM EST Long-term current use of opiate analgesic BI MAMMOGRAM SCREENING TOMOSYNTHESIS BILATERAL Routine 06/13/2023 12:50 PM EST from Last 3 Months or Most Recently Relevant to Health Maintenance Results * (ABNORMAL) POCT Urinalysis (08/12/2024 2:27 [...] CARE TEST EN TER/EDIT ORDERABLES Final Result * (ABNORMAL) POCT RENETTA-14 Urine Drug Screen (08/03/2024 2:01 PM EDT) Only the most recent of3 resultswithin the time period is included. THC Positive Methadone Screen, Urine Positive Urine Urine specimen obtained by clean catch procedure / Unknown 08/03/2024 2:01 PM EDT Narrative Elin Obregon RN - 08/03/2024 2:01 PM EDT .UTOX cup Lot#[id number] Exp. 12/15/25 Internal Pass Control Alana SEYMOUR POINT OF CARE TEST ENTER/EDIT ORDERABLES Final Result * Drug Monitoring, Methadone Metabolite, Screen, Urine (08/03/2024 12:51 PM EDT) Methadone Screen, Urine Not Detected Not Detect ng/mL [facility] Comment:Methadone cut-off is 300 ng/mL.Positive results are unconfirmed and should not be used fornon-medical purposes. Urine (Urine, Random) 08/03/2024 12:51 PM EDT 08/03/2024 4:57 PM EDT us Chayito Crawford MD LAB URINE ORDERABLES Final Result [facility] [address] [place] [phone] * (ABNORMAL) Vitamin D, 25-Hydroxy, Total, Immunoassay (08/03/2024 10:41 AM EDT) Vitamin D 25-OH Total 18.8(L) >30 ng/mL [facility] Comment: Health Based Reference Values*< 20 ??ng/mL ??Uujzumvrb81-72 ng/mL ??Insufficient> 30 ??ng/mL ??Sufficient*Jessie ALBRIGHT. N Engl J Med. 2007;357:266-280There is no well-established upper level of normal vitamin Dlevels. Some laboratories use 50 ng/mL as an upper limit ofnormal. However, toxicity is patient-dependent and may occurat any level. Careful correlation with the patient'spresentation is necessary and, if there is concern forvitamin D toxicity, treatment should be consideredirrespective of the serum level.Care must be taken in interpreting Vitamin D results fromdifferent laboratories and methodologies. ??Published datademonstrated that results from patients undergoinghemodialysis may show a negative bias when tested withvarious automated 25-OH vitamin D assays when compared toLC- MS/MS.When testing samples from patients whose predominant form ofVitamin D is Vitamin D2, such as patients receiving VitaminD2 supplementation, results that are subtherapeutic shouldbe confirmed with another method such as LC-MS/MS. Blood Venous blood specimen / Unknown 08/03/2024 10:41 AM EDT 08/03/2024 11:02 AM EDT us Chayito Crawford MD LAB BLOOD ORDERABLES Final Result [facility] [address] [place] [phone] * Vitamin B12/Folate, Serum Panel (08/03/2024 10:41 AM EDT) Vitamin B12 375 200 - 900 pg/mL [facility] Comment:NORMAL 200-900 PG/ML INDETERMINATE 160-199 PG/ML DEFICIENT < 160 PG/ML Folate 5.6 > or = 4.0 ng/mL [facility] Comment:Reference Values:> o r = 4.0 ng/mL< 4.0 ng/mL suggests folate deficiency Methotrexate, aminopterin and folinic acid(leucovorin) are chemotherapeutic agents whose molecularstructures are similar to folate; therefore, the Architectfolate assay cannot be used for patients using these drugs. Blood Venous blood specimen / Unknown 08/03/2024 10:41 AM EDT 08/03/2024 11:02 AM EDT Chayito Crawford MD LAB BLOOD ORDERABLES Final Result Performing Organization Address [facility] Co de Phone Number [facility] [address] [place] [phone] * TSH with Reflex to Free T4 (08/03/2024 10:41 AM EDT) [facility] TSH reflex Free T4 0.78 0.32 - 4.0 uIU/mL [facility] Blood Venous blood specimen / Unknown 08/03/2024 10:41 AM EDT 08/03/2024 11:02 AM EDT us Chayito Crawford MD LAB BLOOD ORDERABLES Final Result Performing Organization Address City/[facility] Co de Phone Number [facility] [address] [place] [phone] * (ABNORMAL) CBC auto differential (08/03/2024 10:41 AM EDT) [facility] White Blood Count 7.1 4.8 - 10.8 X10*3/uL [facility] Red Blood Count 4.79 4.20 - 5.50 X10*6/uL [facility] Hemoglobin 13.5 12.0 - 16.0 g/dl [facility] Hematocrit 40.0 37.0 - 47.0 % [facility] Mean Corpuscular Volume 83.5 80.0 - 98.0 fL [facility] Mean Corpuscular Hemoglobin 28.2 27.0 - 33.0 pg [facility] Mean Corpuscular HGB Conc 33.8 31.0 - 35.0 g/dl [facility] Red Cell Distribution Width 13.6 11.0 - 16.0 % [facility] Platelet Count 244 160 - 400 X10*3/uL [facility] Mean Platelet Volume 9.6 9.4 - 12.3 fL [facility] Neutrophils Percent Auto 54.5 45 - 73 % [facility] Imm Gran Pct Auto 0.3 0.0 - 0.4 % [facility] Lymphocytes Percent Auto 29.7 20 - 40 % [facility] Monocytes Percent Auto 8.6 2 - 11 % [facility] Eosinophils Percent Auto 6.1(H) 0 - 4 % [facility] Basophils Percent Auto 0.8 0 - 2 % [facility] NRBC Pct Auto 0.0 0.0 - 0.2 /100WBC [facility] Neutrophils Absolute Auto 3.8 2.0 - 8.3 x10*3/uL [facility] Imm Gran Abs Auto 0.02 0.00 - 0.03 X10*3/uL [facility] Lymphocytes Absolute Auto 2.1 1.2 - 4.9 X10*3/uL [facility] Monocytes Absolute Auto 0.6 0.1 - 1.2 X10*3/uL [facility] Eosinophils Absolute Auto 0.4 0.0 - 0.4 X10*3/uL [facility] Basophils Absolute Auto 0.1 0.0 - 0.2 X10*3/uL [facility] NRBC Abs Auto 0.000 0.0 - 0.012 X10*3/uL [facility] Blood Venous blood specimen / Unknown 08/03/2024 10:41 AM EDT 08/03/2024 11:02 AM EDT us Chayito Crawford MD LAB BLOOD ORDERABLES Final Result Performing Organization Address [facility]/ZIP Co de Phone Number [facility] [address] [place] [phone] * Hepatitis C Antibody with Reflex to HCV, RNA, Quantitative, Real-Time PCR (08/03/2024 10:41 AM EDT) Hepatitis C Antibody Nonreactive Nonreactive [facility] Comment:Antibodies to HCV no t detected; does not exclude early acuteHCV infection. Blood Venous blood specimen / Unknown 08/03/2024 10:41 AM EDT 08/03/2024 11:02 AM EDT us Chayito Crawford MD LAB BLOOD ORDERABLES Final Result Performing Organization Address [facility] Co de Phone Number [facility] [address] [place] [phone] * RPR (Monitor) with Reflex to??Titer (08/03/2024 10:41 AM EDT) RPR (Monitor) w/Refl Titer NON-REACTI VE NON-REACT HERMELINDO [facility] Comment:THIS TEST WAS PERFOR MED AT:[employer] [place] [phone] ZEPEDA MD Rapid Plasma Reagin Ab Titer TNP [facility] Blood Venous blood specimen / Unknown 08/03/2024 10:41 AM EDT 08/03/2024 11:02 AM EDT us Chayito Crawford MD LAB BLOOD ORDERABLES Final Result Performing Organization Address [facility] Co de Phone Number [facility] [address] [place] [phone] * HIV-1/2 Antigen and Antibodies, Fourth Generation, with Reflexes (08/03/2024 10:41 AM EDT) HIV AB/AG Nonreactive Nonreactive [facility] Comment:HIV-1 p24 Ag and/or HIV-1/HIV-2 Ab not detected.A test result that is nonreactive does not exclude thepossibility of exposure to or infection with HIV-1 and/orHIV-2. Nonreactive results in this assay for individualswith prior exposure to HIV-1 and/or HIV-2 may be due toantigen and antibody levels that are below the limit ofdetection of this assay.[employer] HIV Ag/Ab Combo assay result andsupplemental assay results should be interpreted inconjunction with the patient's clinical presentation,history and other laboratory results. If the results areinconsistent with clinical evidence, additional testing issuggested to confirm the result. Blood Venous blood specimen / Unknown 08/03/2024 10:41 AM EDT 08/03/2024 11:02 AM EDT us Chayito Crawford MD LAB BLOOD ORDERABLES Final Result [facility] [address] [place] [phone] * Hemoglobin A1c (08/03/2024 10:41 AM EDT) Hemoglobin A1c 5.6 <6.0 % [facility] Comment:Hemoglobin A1C Refer ence Range Adults: 4.8 - 6.0 % Non diabetic: < 6.0 % Goal: < 7.0 %Additional Action Suggested: > 8.0 %Note: Hemoglobin A1c results are invalid for patients with abnormal amounts of HbF. Blood transfusions may impact the HbA1c concentration in the patient sample. Estimated Average Glucose 114 mg/dL [facility] Comment:eAG = Estimated ave rage glucose which is %A1C expressed asaverage glucose, using the formula of the T0J-BepxcbzKsvdllh Glucose study (ADAG), Diabetes Care, Vol.31,#8,2007 Blood Venous blood specimen / Unknown 08/03/2024 10:41 AM EDT 08/03/2024 11:02 AM EDT us Chayito Crawford MD LAB BLOOD ORDERABLES Final Result [facility] [address] [place] [phone] * (ABNORMAL) Lipid Panel, Standard (08/03/2024 10:41 AM EDT) Triglycerides 180(H) <150 mg/dL [facility] Comment:Desirable Triglyceri de: less than 150 mg/dLBorderline High Triglyceride 150-199 mg/dLHigh Triglyceride: 200-499 mg/dLVery High Triglyceride: greater than or equal to 5OO mg/dL Cholesterol 219(H) <200 mg/dL [facility] Comment:Desirable Cholestero l: less than 200 mg/dLBorderline High Cholesterol: 200-239 mg/dLHigh Cholesterol: greater than 239 mg/dL LDL Cholesterol Calculated 133(H) <100 mg/dL [facility] Comment:Desirable LDL: less than 100 mg/dLNear Optimal/Above Optimal LDL: 110- 129 mg/dLBorderline High LDL: 130-159 mg/dLHigh LDL: 160-189 mg/dLVery High LDL: greater than or equal to 190 mg/dL HDL Cholesterol 50 >40 mg/dL [facility] Comment:Desirable HDL: great er than 40 mg/dL Note: This HDL assay may give artificially low results in patients with liver disease. Blood Venous blood specimen / Unknown 08/03/2024 10:41 AM EDT 08/03/2024 11:02 AM EDT us Chayito Crawford MD LAB BLOOD ORDERABLES Final Result [facility] [address] [place] [phone] * (ABNORMAL) Comprehensive Metabolic Panel (08/03/2024 10:41 AM EDT) Sodium 137 135 - 145 mmol/L [facility] Potassium 3.5 3.3 - 5.1 mmol/L [facility] Chloride 110(H) 96 - 108 mmol/L [facility] Carbon Dioxide 22 22 - 29 mmol/L [facility] Anion Gap 9(L) 12 - 20 [facility] Urea Nitrogen (BUN) 12 9 - 16 mg/dL [facility] Creatinine, Serum 0.63 0.5 - 1.4 mg/dL [facility] Estimated Glomerular Filt Rate >60 [facility] Comment:Chronic Kidney Disea se: Estimated GFR < 60 mL/min/1.13f0Lkmhve Kidney Disease: Estimated GFR < 15 mL/min/1.73m2 Glucose 121(H) 60 - 115 mg/dL [facility] Calcium 9.0 8.4 - 10.2 mg/dL [facility] Bilirubin, Total 0.2 0.0 - 1.0 mg/dL [facility] Aspartate Amino Transferase 19 5 - 31 U/L [facility] Alanine Aminotransferase 18 0 - 31 U/L [facility] Total Protein 6.7 6.5 - 8.0 g/dL [facility] Albumin Level 3.9 3.5 - 5.0 g/dL [facility] Alkaline Phosphatase 55 39 - 117 U/L [facility] Blood Venous blood specimen / Unknown 08/03/2024 10:41 AM EDT 08/03/2024 11:02 AM EDT us Chayito Crawford MD LAB BLOOD ORDERABLES Final Result [facility] [address], [place] [phone] * BI Mammogram Screening Tomosynthesis Bilateral (06/13/2023 12:50 PM EST) Anatomical Region Laterality Modality Breast Bilateral Mammography 06/13/2023 12:5 0 PM EST Narrative 07/08/2023 12:41 PM EDT ? [facility] ? [address] ?[place] [address] ? Mammography Report ? Signed ? Patient: Mamadou,Shanae ?MR#: [id number] ?? 6 ? : 1975 ?Acct:[id number] ? Age/Sex: 48 / F ?ADM Date: 06/13/23 ? Loc: HO.MAMMO ? Attending Dr: Chayito Crawford MD ? Ordering Physician: Chayito Causey MD ?Results: ?? 1Negative ? Date of Service: 06/13/23 ?Follow Up: 1 Year From Orig ?? inal Mammogram ? Procedure(s): MM tomosynthesis screening BI ?? Accession Number(s): [id number] ? cc: Chayito Causey MD ? EXAMINATION: [...] by Lois Ricci MD in OV> ? 07/08/237 ? DD/ 1250 ? TD/TT: ? Finishing Technician: ? Procedure Note Donrobby, Image - 07/08/2023 [facility] [address] [place] [address] Mammography Report Signed Patient: Brice Cedillo#: [id number] 6 : 1975Acct:[id number] Age/Sex: 48 / FADM Date: 06/13/23 Loc: HO.MAMMO Attending Dr: Chayito Crawford MD Ordering Physician: Chayito Causey MDResults: 1Negative Date of Service: 06/13/23Follow Up: 1 Year From Orig inal Mammogram Procedure(s): MM tomosynthesis screening BI Accession Number(s): [id number] cc: Chayito Causey MD EXAMINATION: MM SCREENING [...] in OV> 07/08/23 1237 DD/ 1250 TD/TT: Finishing Technician: Chayito Crawford MD IMG BI PROCEDURES Fin al Result from Last 3 Months or Most Recently Relevant to Health Maintenance Insurance [address] [place], [place] [email or web address] C[employer] Care Teams Assistant Womens Volleyball Coach Relationship Specialty Start Date End Date Chayito Causey MD [address] [place] [phone] PCP - General Family Medicine 04/01/19
--- OUTSIDE RECORDS SUMMARY | 2024-08-12 18:29 | XMS_ITS ---
Author Organization [employer] Address [address] [place] [address] Care Team Providers Care Patrol Inspector Name Role Phone Chayito Causey MD Primary Care Provide r CHW Complex Status:Enrolled (Active) Start date:07/22/2024 Enrollment date:07/22/2024 Overview SDOH - Utilities Case Team Name Relationship Phone Richelle Fong (Responsible Staff) Continued Care and Services Coordination
--- OUTSIDE RECORDS SUMMARY | 2024-08-12 18:29 | XMS_ITS | Encounter Summary ---
Author Organization [employer] [facility] Address [address] [place] [address] 7 [place] [address] Care Team Providers Care Wood And Wood Products Factory Worker Name Role Phone Chayito Causey MD Primary Care Provide r Reason for Visit * Reason Comments Med Refill Encounter Details Date Type Department Care Team (Late Contact Info) Description 02/19/2023 Refill [facility] [address] [place] [phone] Chayito Causey MD [address] [place] [address] [phone] Other chronic pain Social History Tobacco Use [...] 09/07/2024 11:00 AM EDT Office Visit [facility] [address] [place] [address] [phone] 11/25/2024 1:00 PM EDT Office Visit [facility] [address] [place] [address] [phone] Chayito Causey MD [address] [place] [address] [phone] documented as of this encounter Visit Diagnoses Diagnosis Other chronic pain documented in this encounter Care Teams Wood [employer] Wood Products Factory Worker Relationship Specialty Start Date End Date Chayito Causey MD [address] [place] [address] PCP - General Family Medicine 04/01/19 documented as of this encounter
== END 2024-08-12 17:43 | disposition home or self-care (01) ==
LOC: HO.HHCLNP 17:42
PROVIDERS: Visit Provider Internal Medicine
DX: R35.0 Frequency of micturition (principal)
CPT/HCPCS: 87086

== ENCOUNTER 2024-09-07 13:00 | Outpatient (REF) | payer MEDICAID, SELFPAY ==
--- OUTSIDE RECORDS SUMMARY | 2024-09-07 14:04 | XMS_ITS | Encounter Summary ---
Author Organization [employer] Address [address] 7t [place] [address] Care Team Providers Care Mine Car Repairer Name Role Phone Chayito Causey MD Primary Care Provide r Reason for Visit * Reason Comments Care Coordination C3CM/CHW RAGINI Tompkins SDOH f/u_unable to lvm Encounter Details Date Type Department Care Team (Latest Contact Info) Description 09/06/2024 Patient Outreach [facility] [address] [place] [address] Chayito Causey MD [address] [place] [address] Care Coordination (C3DIANA/RAGINI Scales f/u_unable to lvm) Social History Tobacco Use Types Packs/Day Years [...] AM EDT documented as of this encounter Progress Notes * Richelle Fong - 09/06/2024 2:51 PM EDT CHW Richelle Fong placed outbound call to patient for follow up call on SDOH needs. No answer at this time. CHW unable to LVM mailbox not set up. CHW will attempt another follow up call within 10 days. documented in this encounter Plan of Treatment Upcoming Encounters Date Type Department Care Team (Late st Contact Info) Description 10/05/2024 11:00 AM EDT Office Visit [facility] [address] [place], [place] [phone] 11/08/2024 2:30 PM EDT Office Visit [facility] [address] [place] [address] Valeria Nuñez, OD [address] [place] [address] 11/25/2024 1:00 PM EDT Office Visit [facility] [address] [place] [address] Chayito Causey MD [address] [place] [address] documented as of this encounter Visit Diagnoses Not on filedocumented in this encounter Additional Health Concerns Assessment Noted Time PHQ-9 Depression Total Score: 12 025 1:11 PM EDT documented as of this encounter Care Teams Mine Car Repairer Relationship Specialty Start Date End Date Chayito Causey MD [address] [place] [address] PCP - General Family Medicine 04/01/19 documented as of this encounter
--- OUTSIDE RECORDS SUMMARY | 2024-09-07 14:04 | XMS_ITS | Encounter Summary ---
Author Organization [employer] Address [address] [place] [address] 7t [place] [address] Care Team Providers Care Punchboard Assembler Name Role Phone Chayito Causey MD Primary Care Provide r Reason for Visit * Reason Onset Date Comments Med Refill 06/04/2022 Encounter Details Date Type Department Care Team (Late st Contact Info) Description 06/04/2022 Telephone [facility] [address] [place] [phone] Chayito Causey MD [address] [place] [phone] Med Refill Social History Tobacco Use Types [...] Description 10/05/2024 11:00 AM EDT Office Visit [facility] [address] [place] [address] 11/08/2024 2:30 PM EDT Office Visit [facility] [address] [place] [address] Valeria Nuñez, OD [address] [place] [address] 11/25/2024 1:00 PM EDT Office Visit [facility] [address] [place] [address] Chayito Causey MD [address] [place] [address] documented as of this encounter Visit Diagnoses Not on filedocumented in this encounter Care Teams Punchboard Assembler Relationship Specialty Start Date End Date Chayito Causey MD [address] [place] [address] [phone] PCP - General Family Medicine 04/01/19 documented as of this encounter
--- OUTSIDE RECORDS SUMMARY | 2024-09-07 14:04 | XMS_ITS | Encounter Summary ---
Author Organization [employer] Address [address] [facility] 7t [place] [address] Care Team Providers Care Math Teacher Name Role Phone Chayito Causey MD Primary Care Provide r Encounter Details Date Type Department Care Team (Late Contact Info) Description 12/09/2023 Telephone [facility] [address] [place] [phone] Chayito Causey MD [address] [place] [phone] Social History Tobacco Use Types Packs/Day Years [...] Description 10/05/2024 11:00 AM EDT Office Visit [facility] [address] [place] [address] 11/08/2024 2:30 PM EDT Office Visit [facility] [address] [place], [place] [phone] Valeria Nuñez, OD [address] [place] [address] 11/25/2024 1:00 PM EDT Office Visit [facility] [address] [place], [place] [phone] Chayito Causey MD [address] [place], [place] [phone] documented as of this encounter Visit Diagnoses Not on filedocumented in this encounter Additional Health Concerns Assessment Noted Time PHQ-9 Depression Total Score: 20 024 8:04 AM EST documented as of this encounter Care Teams Math Teacher Relationship Specialty Start Date End Date Chayito Causey MD [address] [place], [place] [phone] PCP - General Family Medicine 04/01/19 documented as of this encounter
--- OUTSIDE RECORDS SUMMARY | 2024-09-07 14:04 | XMS_ITS | Encounter Summary ---
Author Organization [employer] Address [address] [place] [address] 7t [place] [address] Care Team Providers Care Inspector Screen Printing Name Role Phone Chayito Causey MD Primary Care Provide r Reason for Visit * Reason Comments Med Refill Encounter Details Date Type Department Care Team (Late st Contact Info) Description 09/02/2022 Refill [facility] [address] [place] [phone] Chayito Cauesy MD [address] [place] [phone] Other chronic pain Social History Tobacco Use [...] Description 10/05/2024 11:00 AM EDT Office Visit [facility] [address] [place], [place] [phone] 11/08/2024 2:30 PM EDT Office Visit [facility] [address] [place], [place] [phone] TarValeria mantilla, OD [address] [place] [address] 11/25/2024 1:00 PM EDT Office Visit [facility] [address] [place], [place] [phone] Chayito Causey MD [address] [place], [place] [phone] documented as of this encounter Visit Diagnoses Diagnosis Other chronic pain documented in this encounter Care Teams Inspector Screen Printing Relationship Specialty Start Date End Date Chayito Causey MD [address] [place] [address] PCP - General Family Medicine 04/01/19 documented as of this encounter
--- OUTSIDE RECORDS SUMMARY | 2024-09-07 14:04 | XMS_ITS | Encounter Summary ---
Author Organization [employer] Address [address] [place] [address] 7t [place] [address] Care Team Providers Care Reducer Name Role Phone Chayito Causey MD Primary Care Provide r Reason for Visit * Reason Comments Med Refill Encounter Details Date Type Department Care Team (Late st Contact Info) Description 04/10/2022 Refill [facility] [address] [place] [phone] Sangeeta Silveira MD [address] [place] [address] Social History Tobacco Use Types Packs/Day Years [...] Description 10/05/2024 11:00 AM EDT Office Visit [facility] 230 [place] [address] 11/08/2024 2:30 PM EDT Office Visit [facility] [address] [place], [place] [phone] Valerai Nuñez, OD [address] [place] [address] 11/25/2024 1:00 PM EDT Office Visit [facility] [address] [place] [address] Chayito Causey MD 230 [place] [address] documented as of this encounter Visit Diagnoses Not on filedocumented in this encounter Care Teams Reducer Relationship Specialty Start Date End Date Chayito Causey MD [address] [place], [place] [phone] PCP - General Family Medicine 04/01/19 documented as of this encounter
--- OUTSIDE RECORDS SUMMARY | 2024-09-07 14:04 | XMS_ITS | Encounter Summary ---
Author Organization [employer] Address [address] [place] [address] 7t [place] [address] Care Team Providers Care Emergency Room Specialist Name Role Phone Chayito Causey MD Primary Care Provide r Reason for Visit * Reason Onset Date Comments Med Refill 04/19/2022 Encounter Details Date Type Department Care Team (Late st Contact Info) Description 04/19/2022 Refill [facility] [address] [place] [phone] Chayito Causey MD [address] [place] [address] Other chronic pain Social History Tobacco Use [...] Description 10/05/2024 11:00 AM EDT Office Visit [facility] [address] [place] [phone] 11/08/2024 2:30 PM EDT Office Visit [facility] [address] [place] [address] EranannaleeValeria, OD [address] [place] [address] 11/25/2024 1:00 PM EDT Office Visit [facility] 230 [place] [address] Chayito Causey MD 230 [place] [address] documented as of this encounter Visit Diagnoses Diagnosis Other chronic pain documented in this encounter Care Teams Emergency Room Specialist Relationship Specialty Start Date End Date Chayito Causey MD [address] [place] [address] [phone] PCP - General Family Medicine 04/01/19 documented as of this encounter
--- OUTSIDE RECORDS SUMMARY | 2024-09-07 14:04 | XMS_ITS | Encounter Summary ---
Author Organization [employer] Address [address] 7t [place] [address] Care Team Providers Care Shirt Maker Name Role Phone Chayito Causey MD Primary Care Provide r Encounter Details Date Type Department Care Team ([facility] Contact Info) Description 09/07/2024 Refill [facility] [address] [place], [place] [phone] Elin Obregon, RN [address] [place] [address] Lumbosacral spondylosis without myelopathy Social History Tobacco [...] encounter Miscellaneous Notes * Telephone Encounter - Elin Obregon RN - 09/07/2024 11:52 AM EDT Fyi. UTOX Positive for MTD again (last pos 08/03/24, confirmation from the lab was negative). Sendingit out to the lab for MTD confirmation. documented in this encounter Plan of Treatment Upcoming Encounters Date Type Department Care Team (Late st Contact Info) Description 10/05/2024 11:00 AM EDT Office Visit [facility] [address] [place] [address] 11/08/2024 2:30 PM EDT Office Visit [facility] [address] [place] [address] Valeria Nuñez, NATHANAEL [address] [place] [address] 11/25/2024 1:00 PM EDT Office Visit [facility] [address] [place] [address] Chayito Causey MD [address] [place] [address] documented as of this encounter Visit Diagnoses Diagnosis Lumbosacral spondylosis without myelopathy documented in this encounter Additional Health Concerns Assessment Noted Time PHQ-9 Depression Total Score: 12 07/30/ 025 1:11 PM EDT documented as of this encounter Care Teams Shirt Maker Relationship Specialty Start Date End Date Chayito Causey MD [address] [place] [address] [place] [address] PCP - General Family Medicine 04/01/19 documented as of this encounter
--- OUTSIDE RECORDS SUMMARY | 2024-09-07 14:04 | XMS_ITS | Encounter Summary ---
Author Organization [employer] Address [address] [place] [address] 7t [place] [address] Care Team Providers Care Retention Manager Name Role Phone Chayito Causey MD Primary Care Provide r Reason for Visit * Reason Onset Date Comments Appointment Request 04/09/2022 Encounter Details Date Type Department Care Team ([facility] st Contact Info) Description 04/09/2022 Telephone [facility] [address] [place] [address] Chayito Causey MD [address] [place] [address] Appointment Request Social History Tobacco Use Types [...] 11:51 AM EST TC to pt via mortgage loan originator [place]e [place] [id number], [employer] [place] scheduled for 05/02/22 at 2 pm. Pt states she willbe at her sisters' house until then. * Telephone Encounter - Eitan Balderasos - 04/09/2022 2:55 PM EST Tc from pt requesting r/s COT RN APPT Please contact pt at [phone] speaks Pashto documented in this encounter Plan of Treatment Upcoming Encounters Date Type Department Care Team (Late st Contact Info) Description 10/05/2024 11:00 AM EDT Office Visit [facility] [address] [place] [address] 11/08/2024 2:30 PM EDT Office Visit [facility] [address] [place] [address] TarkaValeria, OD [address] [place] [address] 11/25/2024 1:00 PM EDT Office Visit [facility] [address] [place] [address] Chayito Causey MD [address] [place] [address] [phone] documented as of this encounter Visit Diagnoses Not on filedocumented in this encounter Care Teams Retention Manager Relationship Specialty Start Date End Date Chayito Causey MD [address] [place] [address] [phone] PCP - General Family Medicine 04/01/19 documented as of this encounter
--- OUTSIDE RECORDS SUMMARY | 2024-09-07 14:04 | XMS_ITS | Encounter Summary ---
Author Organization [employer] Address [address] [place] [address] 7t [place] [address] Care Team Providers Care Fishing Gear Mechanic Name Role Phone Chayito Causey MD Primary Care Provide r Reason for Visit * Reason Comments Med Refill Encounter Details Date Type Department Care Team (Late st Contact Info) Description 02/19/2023 Refill [facility] [address] [place] [phone] Chayito Causey MD [address] [place] [phone] Other chronic pain Social History Tobacco Use [...] Description 10/05/2024 11:00 AM EDT Office Visit [facility] [address] [place], [place] [phone] 11/08/2024 2:30 PM EDT Office Visit [facility] [address] [place], [place] [phone] TarValeria mantilla, OD [address] [place] [address] 11/25/2024 1:00 PM EDT Office Visit [facility] [address] [place], [place] [phone] Chayito Causey MD [address] [place], [place] [phone] documented as of this encounter Visit Diagnoses Diagnosis Other chronic pain documented in this encounter Care Teams Fishing Gear Mechanic Relationship Specialty Start Date End Date Chayito Causey MD [address] [place] [address] PCP - General Family Medicine 04/01/19 documented as of this encounter
--- OUTSIDE RECORDS SUMMARY | 2024-09-07 14:04 | XMS_ITS | Clinical Summary ---
Author Organization [email or web address] Address [address] [facility] [address] [place] [address] Care Team Providers Care Associate Professor Of Literacy Name Role Phone Chayito Causey MD Primary Care Provide r Allergies No known active allergies Medications * This document contains information received from the source organization and may not represent a complete record from that organization. lidocaine (Xylocaine) 5 % ointmentIndicati ons:Lumbosacral spondylosis without myelopathy Apply topically if needed in the morning, at noon, and at bedtime (pain). 30 g 3 07/07/19 25 026 Active albuterol (Ventolin HFA) 108 (90 Base) MCG/ACT inhalerIndicatio ns:Mild intermittent asthma, unspecified whether complicated Inhale 2 puffs every 4 (four) hours if needed for wheezing. 18 g 1 07/31/19 25 Active ergocalciferol (Vitamin D2) 1.25 MG (98357 UT) capsule Take 1 capsule (1.25 mg) by mouth 1 (one) time per week. 12 capsule 08/04/19 25 025 Active DULoxetine (Cymbalta) [address] Morrison ns:Mixed anxiety and depressive disorder TAKE 2 CAPSULES BY MOUTH EVERY DAY DO NOT BREAK, CRUSH, DISSOLVE OR CHEW 60 capsule 2 08/14/19 25 Active gabapentin (Neurontin) 600 MG tabletIndication s:Other chronic pain TAKE 1 TABLET BY MOUTH TWICE DAILY 60 tablet 2 08/14/19 25 Active busPIRone (Buspar) 7.5 MG tabletIndication s:Mixed anxiety and depressive disorder TAKE 2 TABLETS BY MOUTH TWICE DAILY 120 tablet 2 08/14/19 25 Active hydrOXYzine HCl (Atarax) 25 MG tabletIndication s:Mixed anxiety and depressive disorder TAKE 1 TABLET BY MOUTH THREE TIMES DAILY NEEDED 90 tablet 2 08/14/19 25 Active venlafaxine (Effexor) 100 MG tabletIndication s:Severe episode of recurrent major depressive disorder, without psychotic features (CMS/HCC),Vasomo tor symptoms due to menopause Take 1 tablet (100 mg) by mouth 2 times daily. 60 tablet 2 08/13/19 25 025 Active melatonin 10 MG tabletIndication s:Primary insomnia Take 1 tablet (10 mg) by mouth at bedtime. 30 tablet 2 08/14/19 25 Active hydrOXYzine HCl (Atarax) 25 MG tabletIndication s:Mixed anxiety and depressive disorder TAKE 1 TABLET BY MOUTH THREE TIMES DAILY NEEDED 90 tablet 2 03/11/20 24 025 Discontinued busPIRone (Buspar) 7.5 MG tabletIndication s:Mixed anxiety and depressive disorder TAKE 2 TABLETS BY MOUTH TWICE DAILY 120 tablet 2 03/11/20 24 025 Discontinued DULoxetine (Cymbalta) [address] capsuleIndicatio ns:Mixed anxiety and depressive disorder Take 2 capsules (120 mg) by mouth Once per day. Do not crush or chew. 60 capsule 2 03/31/20 24 025 Discontinued gabapentin (Neurontin) 600 MG tabletIndication s:Other chronic pain TAKE 1 TABLET BY MOUTH TWICE DAILY 60 tablet 2 03/31/20 24 025 Discontinued oxyCODONE-acetam inophen (Percocet) 10-325 MG tabletIndication s:Lumbosacral spondylosis without myelopathy Take 1 tablet by mouth every 12 (twelve) hours if needed for severe pain for up to 28 days. 56 tablet 08/04/19 25 025 Active Problems Problem Noted Date Diagnosed Date Primary insomnia 08/13/2024 Assessment & Plan (08/13/2024 2:47 PM EDT): Sleep hygiene counseling done, I decided to start her on melatonin 10 mg at bedtime Vasomotor symptoms due to menopause 08/12/2024 Urinary frequency 08/12/2024 Assessment & Plan (08/13/2024 2:46 PM EDT): UA and culture will order today patient will be contacted with results Moderate major depression 08/12/2024 Cervical cancer screening 07/30/2024 Atypical chest pain 07/30/2024 Diminished vision 07/30/2024 Forgetfulness 07/30/2024 Assessment & Plan (07/30/2024 4:29 PM EDT): Blood work ordered today patient will be contacted with results Long-term current use of opiate analgesic 2023 Overview (07/08/2024): Medication: Percocet 10-325 Q12H BID Indication: lumbosacral spondylosis w/o myelopathy Last AUTOMATION ANALYST Agreement: 05/11/24 Tier I (monthly visits) (re-eval August 2024 per PCP) Assessment & Plan (07/08/2024 10:40 AM EDT): Timeline: - 07/08/23: NCNS to Group Visit - 10/07/23: NCNS to Group Visit - 11/04/23: Initial Group visit. Pill count as expected, UTOX Positive Cocaine (lab confirmed) - 11/12/23: Discussion between PCP, AUTOMATION ANALYST RN regarding consideration of taper - [...] (06/10/2024 5:28 PM EST): Timeline: - 06/25/23: AUTOMATION ANALYST agreement, forgot pills (f/up RN TC was WNL), Utox, WNL - 07/08/23: NCNS to Group Visit - 10/07/23: NCNS to Group Visit - 11/04/23: Initial Group visit. Pill count as expected, UTOX Positive Cocaine (lab confirmed) - 11/12/23: Discussion between PCP, AUTOMATION ANALYST RN regarding consideration of taper - [...] (05/11/2024 5:50 PM EST): Timeline: - 06/25/23: AUTOMATION ANALYST agreement, forgot pills (f/up RN TC was WNL), Utox, WNL - 07/08/23: NCNS to Group Visit - 10/07/23: NCNS to Group Visit - 11/04/23: Initial Group visit. Pill count as expected, UTOX Positive Cocaine (lab confirmed) - 11/12/23: Discussion between PCP, AUTOMATION ANALYST RN regarding consideration of taper - 12/01/23: random pill count OFF by 6, Utox WNL - 12/09/23: Group visit, UTOX/pill count WNL - 02/17/24: Group visit, pill count OFF by 1, Utox WNL - 03/23/24: Group visit, pill count/UTOX WNL - 05/11/24: Group - pill count/utox WNL Assessment & Plan (03/23/2024 6:14 PM EST): Timeline: - 06/25/23: AUTOMATION ANALYST agreement, forgot pills (f/up RN TC was WNL), Utox, WNL - 07/08/23: NCNS to Group Visit - 10/07/23: NCNS to Group Visit - 11/04/23: Initial Group visit. Pill count as expected, UTOX Positive Cocaine (lab confirmed) - 11/12/23: Discussion between PCP, AUTOMATION ANALYST RN regarding consideration of taper - 12/01/23: random pill count OFF by 6, Utox WNL - 12/09/23: AUTOMATION ANALYST Group visit, UTOX/pill count WNL - 02/17/24: AUTOMATION ANALYST group visit, pill count OFF by 1, Utox WNL - 03/23/24: AUTOMATION ANALYST group visit, pill count/UTOX WNL Assessment & Plan (02/17/2024 5:10 PM EDT): -Good engagement and participation with Group Medical Visit model -Encouraged multifactorial approach to pain control including pharm and non- pharm modalities -See operations support specialist for pill count/UTOX results Mixed anxiety and [...] without psychotic features 05/05/2012 Assessment & Plan (08/13/2024 2:48 PM EDT): Because of her feelings of severe anxiety and depression not getting better and also in light of her vasomotor menopausal symptoms I decided to discontinue duloxetine and instead put her on venlafaxine 100 mg twice a day, I will follow-up with her in 4 weeks Meanwhile continue with hydroxyzine as needed and BuSpar 7.5 mg twice a day ARASELI was called today, recommendations were to follow Assessment & Plan (07/03/2023 8:29 AM EST): ID: Shanae is a 48 y.o. straight-identified cis-female with previous documented hx of Depression. MH services including OP BH Psychotherapy and psychopharmacology; who presents for Anxiety and Depression. Lives with 12 y/o daughter, not working currently due to back problems, applying to SSI. Hx of cocaine use daily, was vicky [...] Health Integration Plan Internal Follow up with [facility] External OP therapy referral and OP psychiatry Referral Patient Self Plan Patient to utilize skills provided in intervention , [facility], and Patient to reach [...] organization. Date Type Department Care Team Description 09/07/2024 11:00 AM EDT Office Visit [address] [address] Lumbosacral spondylosis without myelopathy (Primary Dx); Long-term current use of opiate analgesic 09/07/2024 Refill [facility] [address] [place] [address] Elin Obregon RN Lumbosacral spondylosis without myelopathy 09/07/2024 Travel 09/06/2024 Patient Outreach [address] [address] Chayito Causey MD Care Coordination (C3[facility]/CHW RAGINI Simeon SDOH f/u_unable to [facility]) 08/23/2024 Patient Outreach [address] [address] Chayito Causey MD 08/12/2024 1:45 PM EDT Office Visit [address] [address] Chayito Causey MD Severe episode of recurrent major depressive disorder, without psychotic features (CMS/HCC) (Primary Dx); Vasomotor symptoms due to menopause; Urinary frequency; Primary insomnia; Severe anxiety 08/12/2024 Travel 08/12/2024 Refill [facility] [address] [place], [place] [phone] Chayito Causey MD Mixed anxiety and depressive disorder; Other chronic pain 08/06/[address] [address] Mary Bonner Provide support for MH needs. 08/05/[address] [phone] Chayito Causey MD Chart Prep 08/05/[address] [address] Mary Bonner Provide support for mental health needs 08/05/2024 Patient Outreach [address] [address] Chayito Causey MD Care Coordination ([facility]/RAGINI Scales SDOH f/u) 08/04/[address] [address] Chayito Causey MD Results 08/03/2024 11:00 AM EDT Clinical Support [address] [address] Elin Obregon RN Lumbosacral spondylosis without myelopathy (Primary Dx); Long-term current use of opiate analgesic 08/03/2024 Orders Only [address] [address] Jina Yates MD 08/03/2024 Telephone [facility] [address] [place] [phone] Elin Obregon RN 08/03/2024 Travel 08/03/[address] [address] Chayito Causey MD Lumbosacral spondylosis without myelopathy 07/30/2024 1:30 PM EDT Office Visit [address] [address] Chayito Causey MD Cervical cancer screening (Primary Dx); Atypical chest pain; Diminished vision; Mixed anxiety and depressive disorder; Mild intermittent asthma, unspecified whether complicated; Colon cancer screening; Lumbosacral spondylosis without myelopathy; Forgetfulness 07/30/2024 Travel 07/22/[address] [address] Miriam Ness RN 07/22/2024 Patient Outreach [address] [address] Chayito Causey MD Care Coordination ([facility]/RAGINI Scales initial outreach_enrolled ) 07/22/2024 Patient Outreach [address] [address] Chayito Causey MD Care Coordination (DIANA/FOREST Fong, Chart Review ) 07/22/2024 Patient Outreach [facility] [address] [place] [address] Chayito Causey MD 07/09/2024 Population Health Risk Score Community [facility] ([facility]) Department [address] [place] [phone] Provider, Population Health Generic 07/06/2024 11:00 AM EDT Office Visit [facility] [address] [place] [address] Alana Yeung FNP Lumbosacral spondylosis without myelopathy (Primary Dx); Long-term current use of opiate analgesic 07/06/2024 Refill [facility] [address] [place] [address] Chayito Causey MD Lumbosacral spondylosis without myelopathy 07/06/2024 Travel from Last 3 Months Immunizations Name [...] Description 10/05/2024 11:00 AM EDT Office Visit [facility] [address] [place] [address] 11/08/2024 2:30 PM EDT Office Visit [facility] [address] [place] [address] Valeria Nuñez, OD [address] [place] [address] 11/25/2024 1:00 PM EDT Office Visit [facility] [address] [place] [address] Chayito Causey MD [address] [place] [address] Health Maintenance Due Date Last Done Comments [...] or Tdap) 04/25/2024 04/25/2014 Mammogram 06/13/2024 06/13/2023 SDOH Screening 07/22/2025 07/22/2024 Alcohol/Substance Use Screening 07/30/2025 07/30/2024 Depression Screening 07/30/2025 07/30/2024, 04/04/20 25 Tobacco Screening 08/12/2025 08/12/2024 Zoster Vaccines [...] Name Priority Date/Time Associated Diagnosis Comments POCT RENETTA-14 URINE DRUG SCREEN Routine 09/07/2024 11:55 AM EDT Lumbosacral spondylosis without myelopathy POCT URINALYSIS DIPSTICK Routine 08/12/2024 2:27 PM EDT Urinary frequency CULTURE, URINE, ROUTINE Routine 08/12/2024 2:26 PM EDT Urinary frequency POCT RENETTA-14 URINE [...] 11:49 AM EDT Lumbosacral spondylosis without myelopathy BI MAMMOGRAM SCREENING TOMOSYNTHESIS BILATERAL Routine 06/13/2023 12:50 PM EST from Last 3 Months or Most Recently Relevant to Health Maintenance Results * (ABNORMAL) POCT RENETTA-14 Urine Drug Screen (09/07/2024 11:55 AM EDT) Only the most recent of3 resultswithin the time period is included. THC Positive Methadone Screen, Urine Positive Oxycodone Screen, Urine Positive Urine Urine specimen obtained by clean catch procedure / Unknown 09/07/2024 11:55 AM EDT Narrative Elin Obregon RN - 09/07/2024 11:55 AM EDT .UTOX cup Lot#[id number] Exp. 12/15/25 Internal Pass Control Aalna SEYMOUR POINT OF CARE TEST ENTER/EDIT ORDERABLES Final Result * (ABNORMAL) POCT Urinalysis (08/12/2024 2:27 PM [...] TEST EN TER/EDIT ORDERABLES Final Result * Culture, Urine, Routine (08/12/2024 2:26 PM EDT) Urine Urine specimen obtained by clean catch procedure / Unknown 08/12/2024 2:26 PM EDT 08/12/2024 5:43 PM EDT Comment:UACC Narrative [facility] - 08/14/2024 11:42 AM EDT Urine Culture No growth. Specimen Source: Urine clean catch Chayito Crawford MD LAB MICROBIOLOGY - NERAR ORDERABLES Final Result [facility] [address] [place] [phone] * Drug Monitoring, Methadone Metabolite, Screen, Urine (08/03/2024 12:51 PM EDT) Methadone Screen, Urine Not Detected Not Detect ng/mL [facility] Comment:Methadone cut-off is 300 ng/mL.Positive results are unconfirmed and should not be used fornon-medical purposes. Urine (Urine, Random) 08/03/2024 12:51 PM EDT 08/03/2024 4:57 PM EDT us Chayito Crawford MD LAB URINE ORDERABLES Final Result Performing Organization Address City/[facility]/ZIP Co de Phone Number [facility] [address] [place] [phone] * (ABNORMAL) Vitamin D, 25-Hydroxy, Total, Immunoassay (08/03/2024 10:41 AM EDT) Vitamin D 25-OH Total 18.8(L) >30 ng/mL [facility] Comment: Health Based Reference Values*< 20 ??ng/mL ??[id number] ng/mL ??Insufficient> 30 ??ng/mL ??Sufficient*Jessie ALBRIGHT. N [...] Crawford MD LAB BLOOD ORDERABLES Final Result [facility] [address] [place] [phone] * Vitamin B12/Folate, Serum Panel (08/03/2024 10:41 AM EDT) [facility] Vitamin B12 375 200 - 900 pg/mL [facility] Comment:NORMAL 200-900 PG/ML INDETERMINATE 160-199 PG/ML DEFICIENT < 160 PG/ML Folate 5.6 > or = 4.0 ng/mL [facility] Comment:Reference Values:> o r = [...] BLOOD ORDERABLES Final Result Performing Organization Address [facility] Co de Phone Number [facility] [address] [place] [phone] * TSH with Reflex to Free T4 (08/03/2024 10:41 AM EDT) [facility] TSH reflex Free T4 0.78 0.32 - 4.0 uIU/mL [facility] Blood Venous blood specimen / Unknown 08/03/2024 10:41 AM EDT 08/03/2024 11:02 AM EDT us Chayito Crawford MD LAB BLOOD ORDERABLES Final Result Performing Organization Address City/[facility]/ZIP Co de Phone Number [facility] [address] [place] [phone] * (ABNORMAL) CBC auto differential (08/03/2024 10:41 AM EDT) White Blood Count 7.1 4.8 - 10.8 X10*3/uL [facility] Red Blood Count 4.79 4.20 - 5.50 X10*6/uL [facility] Hemoglobin 13.5 12.0 - 16.0 g/dl [facility] Hematocrit 40.0 37.0 - 47.0 % [facility] Mean Corpuscular Volume 83.5 80.0 - 98.0 fL [facility] Mean Corpuscular Hemoglobin 28.2 27.0 - 33.0 pg [facility] Mean Corpuscular HGB Conc 33.8 31.0 - 35.0 g/dl [facility] Red Cell Distribution Width 13.6 11.0 - 16.0 % [facility] Platelet Count 244 160 - 400 X10*3/uL [facility] Mean Platelet Volume 9.6 9.4 - 12.3 fL [facility] Neutrophils Percent Auto 54.5 45 - 73 % [facility] Imm Gran Pct Auto 0.3 0.0 - 0.4 % [facility] Lymphocytes Percent Auto 29.7 20 - 40 % [facility] Monocytes Percent Auto 8.6 2 - 11 % [facility] Eosinophils Percent Auto 6.1(H) 0 - 4 % [facility] Basophils Percent Auto 0.8 0 - 2 % [facility] NRBC Pct Auto 0.0 0.0 - 0.2 /100WBC [facility] Neutrophils Absolute Auto 3.8 2.0 - 8.3 x10*3/uL [facility] Imm Gran Abs Auto 0.02 0.00 - 0.03 X10*3/uL [facility] Lymphocytes Absolute Auto 2.1 1.2 - 4.9 X10*3/uL [facility] Monocytes Absolute Auto 0.6 0.1 - 1.2 X10*3/uL [facility] Eosinophils Absolute Auto 0.4 0.0 - 0.4 X10*3/uL [facility] Basophils Absolute Auto 0.1 0.0 - 0.2 X10*3/uL [facility] NRBC Abs Auto 0.000 0.0 - 0.012 X10*3/uL [facility] Blood Venous blood specimen / Unknown 08/03/2024 10:41 AM EDT 08/03/2024 11:02 AM EDT Chayito Crawford MD LAB BLOOD ORDERABLES Final Result [facility] [address] [place] [phone] * Hepatitis C Antibody with Reflex to HCV, RNA, Quantitative, Real-Time PCR (08/03/2024 10:41 AM EDT) Hepatitis C Antibody Nonreactive Nonreactive [facility] Comment:Antibodies to HCV no t detected; does not exclude early acuteHCV infection. Blood Venous blood specimen / Unknown 08/03/2024 10:41 AM EDT 08/03/2024 11:02 AM EDT Chayito Crawford MD LAB BLOOD ORDERABLES Final Result Performing Organization Address City/[facility]/ZIP Co de Phone Number [facility] [address] [place] [phone] * RPR (Monitor) with Reflex to??Titer (08/03/2024 10:41 AM EDT) RPR (Monitor) w/Refl Titer NON-REACTI VE NON-REACT HERMELINDO [facility] Comment:THIS TEST WAS PERFOR MED AT:[employer] [place] [phone] ZEPEDA MD Rapid Plasma Reagin Ab Titer TNP [facility] Blood Venous blood specimen / Unknown 08/03/2024 10:41 AM EDT 08/03/2024 11:02 AM EDT Chayito Crawford MD LAB BLOOD ORDERABLES Final Result [facility] [address] [place] [phone] * HIV-1/2 Antigen and Antibodies, Fourth Generation, with Reflexes (08/03/2024 10:41 AM EDT) HIV AB/AG Nonreactive Nonreactive [facility] Comment:HIV-1 p24 Ag and/or HIV-1/HIV-2 Ab not detected.A test result that is nonreactive does not exclude thepossibility of exposure to or infection with HIV-1 and/orHIV-2. Nonreactive results in this assay for individualswith prior exposure to HIV-1 and/or HIV-2 may be due toantigen and antibody levels that are below the limit ofdetection of this assay.[facility] HIV Ag/Ab Combo assay result andsupplemental assay results should be interpreted inconjunction with the patient's clinical presentation,history and other laboratory results. If the results areinconsistent with clinical evidence, additional testing issuggested to confirm the result. Blood Venous blood specimen / Unknown 08/03/2024 10:41 AM EDT 08/03/2024 11:02 AM EDT us Chayito Crawford MD LAB BLOOD ORDERABLES Final Result Performing Organization Address [facility] Co de Phone Number [facility] [address] [place] [phone] * Hemoglobin A1c (08/03/2024 10:41 AM EDT) Hemoglobin A1c 5.6 <6.0 % [facility] Comment:Hemoglobin A1C Refer ence Range Adults: 4.8 - 6.0 % Non diabetic: < 6.0 % Goal: < 7.0 %Additional Action Suggested: > 8.0 %Note: Hemoglobin A1c results are invalid for patients with abnormal amounts of HbF. Blood transfusions may impact the HbA1c concentration in the patient sample. Estimated Average Glucose 114 mg/dL [facility] Comment:eAG = Estimated ave rage glucose which is %A1C expressed asaverage glucose, using the formula of the O1U-GydlqezJlhuhoc Glucose study (ADAG), Diabetes Care, Vol.31,#8,Nov. 2007 Blood Venous blood specimen / Unknown 08/03/2024 10:41 AM EDT 08/03/2024 11:02 AM EDT us Chayito Crawford MD LAB BLOOD ORDERABLES Final Result Performing Organization Address [facility] Co de Phone Number [facility] [address] [place] [phone] * (ABNORMAL) Lipid Panel, Standard (08/03/2024 10:41 AM EDT) Triglycerides 180(H) <150 mg/dL [facility] Comment:Desirable Triglyceri de: less than 150 mg/dLBorderline High Triglyceride 150-199 mg/dLHigh Triglyceride: 200-499 mg/dLVery High Triglyceride: greater than or equal to 5OO mg/dL Cholesterol 219(H) <200 mg/dL [facility] Comment:Desirable Cholestero l: less than 200 mg/dLBorderline High Cholesterol: 200-239 mg/dLHigh Cholesterol: greater than 239 mg/dL LDL Cholesterol Calculated 133(H) <100 mg/dL [facility] Comment:Desirable LDL: less than 100 mg/dLNear Optimal/Above Optimal LDL: 110- 129 mg/dLBorderline High LDL: 130-159 mg/dLHigh LDL: 160-189 mg/dLVery High LDL: greater than or equal to 190 mg/dL HDL Cholesterol 50 >40 mg/dL [facility] Comment:Desirable HDL: great er than 40 mg/dL Note: This HDL assay may give artificially low results in patients with liver disease. Blood Venous blood specimen / Unknown 08/03/2024 10:41 AM EDT 08/03/2024 11:02 AM EDT us Chayito Crawford MD LAB BLOOD ORDERABLES Final Result Performing Organization Address City/[facility]/ZIP Co de Phone Number [facility] [address] [place] [phone] * (ABNORMAL) Comprehensive Metabolic Panel (08/03/2024 10:41 AM EDT) Sodium 137 135 - 145 mmol/L [facility] Potassium 3.5 3.3 - 5.1 mmol/L [facility] Chloride 110(H) 96 - 108 mmol/L [facility] Carbon Dioxide 22 22 - 29 mmol/L [facility] Anion Gap 9(L) 12 - 20 [facility] Urea Nitrogen (BUN) 12 9 - 16 mg/dL [facility] Creatinine, Serum 0.63 0.5 - 1.4 mg/dL [facility] Estimated Glomerular Filt Rate >60 [facility] Comment:Chronic Kidney Disea se: Estimated GFR < 60 mL/min/[id number] Kidney Disease: Estimated GFR < 15 mL/min/1.73m2 Glucose 121(H) 60 - 115 mg/dL [facility] Calcium 9.0 8.4 - 10.2 mg/dL [facility] Bilirubin, Total 0.2 0.0 - 1.0 mg/dL [facility] Aspartate Amino Transferase 19 5 - 31 U/L [facility] Alanine Aminotransferase 18 0 - 31 U/L [facility] Total Protein 6.7 6.5 - 8.0 g/dL [facility] Albumin Level 3.9 3.5 - 5.0 g/dL [facility] Alkaline Phosphatase 55 39 - 117 U/L [facility] Blood Venous blood specimen / Unknown 08/03/2024 10:41 AM EDT 08/03/2024 11:02 AM EDT us Chayito Crawford MD LAB BLOOD ORDERABLES Final Result [facility] [address] [place] [phone] * BI Mammogram Screening Tomosynthesis Bilateral (06/13/2023 12:50 PM EST) Anatomical Region Laterality Modality Breast Bilateral Mammography 06/13/2023 12:5 0 PM EST Narrative 07/08/2023 12:41 PM EDT ? [facility] ? [address] ?[place] [address] ? Mammography Report ? Signed ? Patient: Mamadou,Shanae ?MR#: [id number] ?? 6 ? : 1975 ?Acct:[id number] ? Age/Sex: 48 / F ?ADM Date: 06/13/23 ? Loc: HO.MAMMO ? Attending Dr: Chayito Crawford MD ? Ordering Physician: Chayito Causey MD ?Results: ?? 1Negative ? Date of Service: 06/13/23 ?Follow Up: 1 Year From Orig ?? inal Mammogram ? Procedure(s): MM tomosynthesis screening BI ?? Accession Number(s): [id number] ? cc: Chayito Causey MD ? EXAMINATION: [...] 1237 ? DD/ 1250 ? TD/TT: ? Change Management Facilitator: ? Procedure Note Donpiperpuneetisaelter, Image - 07/08/2023 [place] [facility] [address] [place] [address] Mammography Report Signed Patient: Brice Cedillo#: [id number] 6 : 1975Acct:[id number] Age/Sex: 48 / FADM Date: 06/13/23 Loc: HO.MAMMO Attending Dr: Chayito Crawford MD Ordering Physician: Chayito Causey MDResults: 1Negative Date of Service: 06/13/23Follow Up: 1 Year From Orig inal Mammogram Procedure(s): MM tomosynthesis screening BI Accession Number(s): [id number] cc: Chayito Causey MD EXAMINATION: MM SCREENING [...] in OV> 07/08/23 1237 DD/ 1250 TD/TT: Change Management Facilitator: Chayito Crawford MD IMG BI PROCEDURES Fin al Result from Last 3 Months or Most Recently Relevant to Health Maintenance Insurance [address] [place], [place] [address] C3 Care Teams Associate Professor Of Literacy Relationship Specialty Start Date End Date Chayito Causey MD [address] [place] [phone] PCP - General Family Medicine 04/01/19
--- OUTSIDE RECORDS SUMMARY | 2024-09-07 14:04 | XMS_ITS | Encounter Summary ---
Author Organization [employer] Address [address] [facility] 7t [place] [address] Care Team Providers Care Supervisor Framing Mill Name Role Phone Chayito Causey MD Primary Care Provide r Reason for Visit * Reason Onset Date Comments Nurse Triage 04/17/2023 Encounter Details Date Type Department Care Team (Late st Contact Info) Description 04/17/2023 Telephone [facility] [address] [place] [address] Chayito Causey MD [address] [place] [address] Nurse Triage Social History Tobacco Use Types [...] - 04/17/2023 3:31 PM EST Triage call [facility] Emergency Vehicle Operator [place] [id number] Pt calling with questions regarding isolation , [...] more questions * Telephone Encounter - Brooke Schumacher - 04/17/2023 2:55 PM EST Symptom: COVID-19 Suspected Outcome: Schedule a same-day appointment or talk to a nurse or provider today. Reason: pt states came out positive on at home Covid test on Friday, pt wanted to know how many days she has to stay at home and how can we help her get more Covid test kits. The caller accepted this outcome. Zimbabwean speaker documented in this encounter Plan of Treatment Upcoming Encounters Date Type Department Care Team (Late st Contact Info) Description 10/05/2024 11:00 AM EDT Office Visit [facility] [address] [place] [address] 11/08/2024 2:30 PM EDT Office Visit [facility] [address] [place] [address] Tarka, Valeria, OD [address] [place] [address] 11/25/2024 1:00 PM EDT Office Visit [facility] [address] [place] [phone] Chayito Causey MD [address] [place] [address] documented as of this encounter Visit Diagnoses Not on filedocumented in this encounter Care Teams Supervisor Framing Mill Relationship Specialty Start Date End Date Chayito Causey MD [address] [place] [address] PCP - General Family Medicine 04/01/19 documented as of this encounter
--- OUTSIDE RECORDS SUMMARY | 2024-09-07 14:04 | XMS_ITS | Encounter Summary ---
Author Organization [employer] Address [address] [place] [address] 7t [place] [address] Care Team Providers Care Electricity Trader Name Role Phone Chayito Causey MD Primary Care Provide r Reason for Visit * Reason Comments Med Refill Encounter Details Date Type Department Care Team (Late st Contact Info) Description 04/20/2024 Refill [facility] [address] [place] [address] Chayito Causey MD [address] [place] [phone] Lumbosacral spondylosis without myelopathy Social History Tobacco [...] Description 10/05/2024 11:00 AM EDT Office Visit [facility] [address] [place] [address] 11/08/2024 2:30 PM EDT Office Visit [facility] [address] [place] [phone] Valeria Nuñez, OD [address] [place], [place] [phone] 11/25/2024 1:00 PM EDT Office Visit [facility] [address] [place], [place] [phone] Chayito Causey MD [address] [place], [place] [phone] documented as of this encounter Visit Diagnoses Diagnosis Lumbosacral spondylosis without myelopathy documented in this encounter Additional Health Concerns Assessment Noted Time PHQ-9 Depression Total Score: 20 024 8:04 AM EST documented as of this encounter Care Teams Electricity Trader Relationship Specialty Start Date End Date Chayito Causey MD [address] [place], [place] [phone] PCP - General Family Medicine 04/01/19 documented as of this encounter
--- OUTSIDE RECORDS SUMMARY | 2024-09-07 14:04 | XMS_ITS | Encounter Summary ---
Author Organization [employer] Address [address] [facility] 7t [place] [address] Care Team Providers Care Ring Spinner Name Role Phone Chayito Causey MD Primary Care Provide r Reason for Visit * Reason Comments Med Refill Encounter Details Date Type Department Care Team (Late st Contact Info) Description 10/02/2022 Refill [facility] PEDS [address] [place] [address] Chayito Causey MD [address] [place] [address] Other chronic pain Social History Tobacco Use [...] Description 10/05/2024 11:00 AM EDT Office Visit [facility] MEDICINE [address] [place] [address] 11/08/2024 2:30 PM EDT Office Visit [facility] OPTOMETRY [address] [place] [address] TarkaValeria, OD [address] [place] [address] 11/25/2024 1:00 PM EDT Office Visit [facility] MED[facility]INE [address] [place] [address] Chayito Causey MD [address] [place] [address] documented as of this encounter Visit Diagnoses Diagnosis Other chronic pain documented in this encounter Care Teams Ring Spinner Relationship Specialty Start Date End Date Chayito Causey MD [address] [place] [address] PCP - General Family Medicine 04/01/19 documented as of this encounter
--- OUTSIDE RECORDS SUMMARY | 2024-09-07 14:05 | XMS_ITS ---
Author Organization [employer] Address [address] [place] [address] [address] [place] [address] Care Team Providers Care Progressive Care Manager Name Role Phone Chayito Causey MD Primary Care Provide r [facility] Status:Enrolled (Active) Start date:07/22/2024 Enrollment date:07/22/2024 Overview SDOH - Utilities Case Team Name Relationship Phone Richelle Fong (Responsible Staff) [phone] Continued Care and Services Coordination
--- OUTSIDE RECORDS SUMMARY | 2024-09-07 14:05 | XMS_ITS | Encounter Summary ---
Author Organization [employer] Address [address] [facility] [address] 7t [place] [address] Care Team Providers Care Swimming Pool Servicer Name Role Phone Chayito Causey MD Primary Care Provide r Encounter Details Date Type Department Care Team ([facility] st Contact Info) Description 09/07/2024 11:00 AM EDT Office Visit [facility] [address] [place] [address] Lumbosacral spondylosis without myelopathy (Primary Dx); Long-term current use of opiate analgesic Social History Tobacco Use Types Packs/Day Years [...] Description 10/05/2024 11:00 AM EDT Office Visit [facility] [address] [place] [address] 11/08/2024 2:30 PM EDT Office Visit [facility] OPTOMETRY [address] [place] [address] Valeria Nuñez, OD [address] [place] [address] 11/25/2024 1:00 PM EDT Office Visit [facility] MED[facility] [address] [place] [phone] Chayito Causey MD [address] [place] [address] Scheduled Orders Name Type Priority Associated Diagnoses Orde r Schedule Drug Monitoring, Methadone Metabolite, Screen, Urine Lab Routine Long-term current use of opiate analgesic Ordered: 09/07/2024 documented as of this encounter Procedures Procedure Name Priority Date/Time Associated Diagnosis Comments POCT RENETTA-14 URINE DRUG SCREEN Routine 09/07/2024 11:55 AM EDT Lumbosacral spondylosis without myelopathy documented in this encounter Results * (ABNORMAL) POCT RENETTA-14 Urine Drug Screen (09/07/2024 11:55 AM EDT) THC Positive Methadone Screen, Urine Positive Oxycodone Screen, Urine Positive Urine Urine specimen obtained by clean catch procedure / Unknown 09/07/2024 11:55 AM EDT Narrative Elin Obregon RN - 09/07/2024 11:55 AM EDT .UTOX cup Lot#[id number] Exp. 12/15/25 Internal Pass Control Alana Yeung ELECTRONICS SUPERVISOR POINT OF CARE TEST ENTER/EDIT ORDERABLES Final Result documented in this encounter Visit Diagnoses Diagnosis Lumbosacral spondylosis without myelopathy- Primary Long-term current use of opiate analgesic Encounter for long-term (current) use of other medications documented in this encounter Additional Health Concerns Assessment Noted Time PHQ-9 Depression Total Score: 12 025 1:11 PM EDT documented as of this encounter Care Teams Swimming Pool Servicer Relationship Specialty Start Date End Date Chayito Causey MD [address] [place] [address] PCP - General Family Medicine 04/01/19 documented as of this encounter
--- OUTSIDE RECORDS SUMMARY | 2024-09-07 14:05 | XMS_ITS | Encounter Summary ---
Author Organization [employer] Address [address] [facility] [address] 7[address] [place] [address] Care Team Providers Care Checking Department Supervisor Name Role Phone Chayito Causey MD Primary Care Provide r Encounter Details Date Type Department Care Team (Latest Contact Info) Description 09/07/2024 Travel Social History Tobacco Use Types Packs/Day [...] is your housing situation today? I have glorialeonidas trent 07/22/[address] you [...] Description 10/05/2024 11:00 AM EDT Office Visit [facility] [address] [place] [address] 11/08/2024 2:30 PM EDT Office Visit [facility] OPTOMETRY [address] [place] [address] TarkaValeria, OD [address] [place] [address] 11/25/2024 1:00 PM EDT Office Visit [facility] [address] [place] [phone] Chayito Causey MD [address] [place] [phone] documented as of this encounter Visit Diagnoses Not on filedocumented in this encounter Additional Health Concerns Assessment Noted Time PHQ-9 Depression Total Score: 12 025 1:11 PM EDT documented as of this encounter Care Teams Checking Department Supervisor Relationship Specialty Start Date End Date Chayito Causey MD [address] [place] [address] PCP - General Family Medicine 04/01/19 documented as of this encounter
[2024-09-07 14:10] LABS: Methadone Screen, Urine Not Detected (Not Detect)
== END 2024-09-07 13:01 | disposition home or self-care (01) ==
LOC: HO.HHCLNP 13:00
PROVIDERS: Visit Provider Internal Medicine
DX: Z79.891 Long term (current) use of opiate analgesic (principal)
CPT/HCPCS: 36415; 80307